=== PATIENT | female | born 1940 | race Caucasian/White ===

== ENCOUNTER 2018-03-01 10:46 | Observation (INO) ==
--- NOTE | 2018-03-01 11:00 | Emergency Department Note ---
ED Disposition Clinical Impression: Pneumonia Qualifiers: Pneumonia type: due to unspecified organism Laterality: left Lung location: lower lobe of lung Qualified Code(s): J18.1 - Lobar pneumonia, unspecified organism Disposition: Admitted As Inpatient Condition on Discharge: [facility] - Critical Care Critical Care Time: No Attestation: On , the high probability of a clinically significant, sudden or life threatening deterioration of the following system(s) required my full and direct attention, intervention and personal management. The time I documented below is in addition to time spent performing reported procedures but includes the following listed in this critical care notation. Medical Decision Making - Alex Inquiry Pt receiving controlled substance: No Vital Signs: 03/01/18 10:47 03/01/18 11:09 03/01/18 11:39 Temperature 97.8 F 98.0 F Temperature Source Oral Oral Pulse Rate 120 H Pulse Rate [Right Brachial] 128 H 129 H Respiratory Rate 32 H 24 Blood Pressure Blood Pressure [Right Arm] 126/94 134/49 Blood Pressure Mean [Right Arm] 104 77 Blood Pressure Source [Right Arm] Automatic Cuff Automatic Cuff Blood Pressure Position [Right Arm] Supine Sitting 02 Sat by Pulse Oximetry 93 L 98 Oxygen Delivery Method Room Air Room Air 03/01/18 12:13 03/01/18 13:00 03/01/18 14:20 Temperature 98.2 F Temperature Source Oral Pulse Rate Pulse Rate [Right Brachial] 128 H 116 H 118 H Respiratory Rate 24 28 H 24 Blood Pressure Blood Pressure [Right Arm] 146/75 139/66 150/99 Blood Pressure Mean [Right Arm] 98 90 116 Blood Pressure Source [Right Arm] Automatic Cuff Automatic Cuff Automatic Cuff Blood Pressure Position [Right Arm] Sitting Sitting Sitting 02 Sat by Pulse Oximetry 99 97 97 Oxygen Delivery Method Room Air Room Air Room Air 03/01/18 14:46 Temperature 98.4 F Temperature Source Pulse Rate 133 H Pulse Rate [Right Brachial] Respiratory Rate 26 H Blood Pressure 144/81 Blood Pressure [Right Arm] Blood Pressure Mean [Right Arm] Blood Pressure Source [Right Arm] Blood Pressure Position [Right Arm] 02 Sat by Pulse Oximetry Oxygen Delivery Method Room Air - Lab Data Lab Results 03/01/18 11:20: WBC 12.1 H, RBC 4.14 L, Hgb 11.8 L, Hct 38.6, MCV 93.3, MCH 28.4 , MCHC 30.5 L, RDW 14.8, Plt Count 283, MPV 8.0, Neut % (Auto) 80.9 H, Lymph % ( Auto) 11.5, [place] % (Auto) 5.1, Eos % (Auto) 2.3, Baso % (Auto) 0.2, Neut # (Auto ) 9.8 H, Lymph # (Auto) 1.4, [place] # (Auto) 0.6, Eos # (Auto) 0.3, Baso # (Auto) 0.0 03/01/18 11:20: Sodium 143, Potassium 4.0, Chloride 105, Carbon Dioxide 30, Anion Gap 12.0, BUN 15, Creatinine 0.96, Estimated Creat Clear 85, Estimated GFR 56 L, Est GFR ( Amer) 68, Glucose 109 H, Calcium 8.8, Total Bilirubin 0.5, AST 9 L, ALT 14, Alkaline Phosphatase 103, Troponin I < 0.02, Total Protein 7.0, Albumin 2.8 L, Globulin 4.2 H, Albumin/Globulin Ratio 0.7 L 03/01/18 11:20: Lactic Acid 1.2 03/01/18 11:30: Chlamy pneumoniae PCR Not detected, Adenovirus (PCR) Not detected, B.parapertussis DNA PCR Not detected, Coronavirus OC43 (PCR) Not detected, Coronavirus HKU1 (PCR) Not detected, Coronavirus 229E (PCR) Not detected, Coronavirus NL63 (PCR) Not detected, Human Metapneumovir PCR Not detected, Influenza A (H1) PCR Not detected, Influ A (H1N1/09) PCR Not detected , Influenza A (H3) PCR Not detected, Influenza Type A (PCR) Not detected, Influenza Type B (PCR) Not detected, M. pneumoniae (PCR) Not detected, Parainfluenza 1 (PCR) Not detected, Parainfluenza 2 (PCR) Not detected, Parainfluenza 3 (PCR) Not detected, Parainfluenza 4 (PCR) Not detected, RSV (PCR ) Not detected, Entero/Rhino (PCR) Not detected Result diagrams: 03/01/18 11:20 03/01/18 11:20 Orders (Tests/Meds): ED MEDICATIONS Generic Name Dose Route Start Last Admin Trade Name Freq PRN Reason Stop Dose Admin Acetaminophen 650 mg 03/01/18 14:32 Acetaminophen 325mg Tab PO 03/31/18 14:31 Q4HP PRN As Needed for Fever or Pain Albuterol/Ipratropium 3 ml 03/01/18 20:00 03/01/18 18:49 Duoneb 3ml Neb IH 03/31/18 19:59 3 ml QIDRT JOHNNIE Administration Carbidopa/Levodopa 1 each 03/01/18 21:00 Carbidopa/Levodopa 25/100mg Tablet PO 03/31/18 20:59 TID JOHNNIE Diltiazem HCl 120 mg 03/02/18 09:00 Cardizem Cd 120mg Capsule PO 04/01/18 08:59 DAILY [facility] Fluoxetine HCl 20 mg 03/01/18 21:00 Prozac 20mg Capsule PO 03/31/18 20:59 BID [facility] Fluticasone Propionate 1 puffs 03/01/18 21:00 Flovent Hfa 110mcg Inhaler IH 03/31/18 20:59 BID [facility] Gabapentin 400 mg 03/01/18 21:00 Neurontin 400mg Capsule PO 03/31/18 20:59 HS [facility] Vancomycin HCl 2,000 mg/ 250 mls @ 125 mls/hr 03/01/18 15:00 03/01/18 17:37 Sodium Chloride IV 03/15/18 14:59 125 mls/hr Q24H JOHNNIE Administration Cefepime HCl 2 gm/ Sodium 100 mls @ 200 mls/hr 03/01/18 21:00 Chloride IV 03/15/18 14:14 Q12 JOHNNIE Protocol Levofloxacin/Dextrose 750 mg in 150 mls @ 100 mls/hr 03/02/18 11:00 Levofloxacin 750mg/150ml Premix IV 03/16/18 10:59 1100 [facility] Protocol Methylprednisolone Sodium Succinate 80 mg 03/01/18 21:00 Solu-Medrol 125mg/2ml Vial IV 03/31/18 20:59 Q8H JOHNNIE Pantoprazole Sodium 40 mg 03/01/18 21:00 Protonix 40mg Tablet PO 03/31/18 20:59 HS [facility] Polyethylene Glycol 17 gm 03/02/18 09:00 Miralax 17gm Packet PO 04/01/18 08:59 DAILY [facility] Discontinued Medications Generic Name Dose Route Start Last Admin Trade Name Freq PRN Reason Stop Dose Admin Albuterol/Ipratropium 3 ml 03/01/18 10:50 05/30/18 11:00 Duoneb 3ml Neb 03/01/18 10:51 3 ml ONCE ONE Administration Levofloxacin/Dextrose 750 mg in 150 mls @ 100 mls/hr 03/01/18 14:15 03/01/18 16:07 Levofloxacin 750mg/150ml Premix IV 03/15/18 14:14 Not Given Q24H JOHNNIE Protocol Cefepime HCl 2 gm/ Sodium 100 mls @ 200 mls/hr 03/01/18 14:15 03/01/18 14:17 Chloride IV 03/15/18 14:14 200 mls/hr Q12H JOHNNIE Administration Protocol Vancomycin HCl 2,000 mg/ 250 mls @ 125 mls/hr 03/01/18 15:00 Sodium Chloride IV 03/15/18 14:59 Q24H JOHNNIE Levofloxacin/Dextrose 750 mg in 150 mls @ 100 mls/hr 03/01/18 14:28 Levofloxacin 750mg/150ml Premix IV 03/15/18 14:14 1100 JOHNNIE Protocol Cefepime HCl 2 gm/ Sodium 100 mls @ 200 mls/hr 03/01/18 14:28 Chloride IV 03/15/18 14:14 Q12 JOHNNIE Protocol Levofloxacin/Dextrose 750 mg in 150 mls @ 100 mls/hr 03/01/18 15:30 03/01/18 15:39 Levofloxacin 750mg/150ml Premix IV 03/15/18 15:29 100 mls/hr 1500 JOHNNIE Administration Protocol Levofloxacin/Dextrose 750 mg in 150 mls @ 100 mls/hr 03/01/18 16:06 Levofloxacin 750mg/150ml Premix IV 03/15/18 15:29 DAILY JOHNNIE Protocol Methylprednisolone Sodium Succinate 125 mg 03/01/18 11:28 03/01/18 11:47 Solu-Medrol 125mg/2ml Vial IV 03/01/18 11:29 125 mg ONCE ONE Administration Miscellaneous 1 each 03/01/18 14:05 03/01/18 14:10 Vancomycin Consult Request NOTAPPLIC 03/01/18 14:06 1 each CONSULT PHARMACY ONE Administration Miscellaneous 1 each 03/01/18 14:32 Vancomycin Consult Request * 03/31/18 14:31 CONSULT PHARMACY [facility] Sodium Chloride 3 ml 03/01/18 11:02 Sodium Chloride 3% 15ml [facility] 03/01/18 11:03 ONCE ONE Sodium Chloride 3 ml 03/01/18 14:32 Sodium Chloride 3% 15ml [facility] 03/01/18 14:33 ONCE ONE ORDERS Category Date Time Status Blood Culture Stat Micro 03/01/18 11:08 Received Sputum Culture & Gram Stain Stat Micro 03/01/18 11:02 Results - Radiology Data #1 Image(s): Chest Image Reviewed: Yes I discussed the image results w/the radiologist Left basilar infiltrate - ECG Data Tracing #1 EKG interpreted by Omar Becker MD: Rhythm: Baseline artifact present. Regular tachycardia, sinus tachycardia vs a. flutter (has h/o a. fib) Rate: 126 [place]: Left Ectopy: none Conduction: normal ST Segment Changes: none T Wave Changes: none Q Waves: none No evidence of acute ischemia or injury - Physician Consults Physician Consulted: Chase Time: 14:07 Reason -: Admission Comment/Response: Agrees to admit the patient to the hospital. We discussed the patient's clinical information, including history, exam, laboratory and radiology results and ED course. Per hospital procedure, I will write temporary bridge inpatient orders on the patient. Specific orders requested by the admitting physician: Cefepime, Levaquin, vancomycin. Continue nebulizer treatments and steroids. Has a history of MAT which generally improves with treatment of her pulmonary disease. No specific treatment for heart rate at this time. - Reevaluation(s) Time: 13:15 Reevaluation #1: Feels mildly improved. Heart rate 110, irregular. General Adult HPI - General Chief complaint: Shortness of Breath/Dyspnea Stated complaint: cough, soa Time Seen by Provider: 03/01/18 10:50 - History of Present Illness HPI narrative: Transported from [facility]. States she is sick for 1 week with a "chest cold". She has a productive cough, coughing up "globs" of green and yellow. She has shortness of air. Denies chest pain or fever. She does have a sore throat. She has COPD. Prior to entering the shelter 1 year ago she had been on oxygen at home 24 hours a day, but is not currently on oxygen in the shelter. She does get breathing treatments. - Related Data Home Medications Medication Instructions Recorded Confirmed Acetaminophen [Acetaminophen Extra 1,000 mg PO Q6HP PRN 03/01/18 03/01/18 Strength] Carbidopa/Levodopa 1 tab PO TID 03/01/18 03/01/18 [Carbidopa/Levodopa 25/100mg Tablet] Fluoxetine HCl [Prozac] 20 mg PO BID 03/01/18 03/01/18 Fluticasone Propionate [Flovent 1 puff IH BID 03/01/18 03/01/18 Hfa 110mcg Inhaler] Gabapentin [Gabapentin 400mg Cap] 400 mg PO HS 03/01/18 03/01/18 Lactulose [Lactulose 10gm/15ml 10 gm PO DAILYP PRN 03/01/18 03/01/18 Oral Soln] Omeprazole [Omeprazole 20mg Tab] 20 mg PO 0700 03/01/18 03/01/18 Peg 400/Hypromellose/Glycerin 1 drop OP DAILY 03/01/18 03/01/18 [Artificial Tears Drops] Polyethylene Glycol 3350 [Miralax 17 gm PO DAILY 03/01/18 03/01/18 17gm Packet] clonazePAM [Klonopin 0.5mg tablet] 0.5 mg PO 0900,1300,2100 03/01/18 03/01/18 dilTIAZem HCl [Diltiazem 120mg 120 mg PO DAILY 03/01/18 03/01/18 12Hr ER Cap] guaiFENesin [Robafen] 200 mg PO Q4HP PRN 03/01/18 03/01/18 Allergies Allergy/AdvReac Type Severity Reaction Status Date / Time ibuprofen [From ADVIL] Allergy Intermediate I-HIVES Verified 03/01/18 11:25 Penicillins [PENICILLINS] Allergy Intermediate I-RASH Verified 03/01/18 11:25 Sulfa (Sulfonamide Allergy Intermediate I-RASH Verified 03/01/18 11:25 Antibiotics) [SULFA (SULFONAMIDE ANTIBIOTICS)] theophylline [THEOPHYLLINE] Allergy Intermediate NA-NAUSEA/V Verified 03/01/18 11:25 OMITING/DERICK RRHEA/EXCIT ABLE adhesive tape Allergy Mild COBAN Verified 03/01/18 11:25 CAUSES BLISTERING/WELTS alprazolam [ALPRAZOLAM] Allergy Unknown NA-HALLUCIN Verified 03/01/18 11:25 ATIONS aspirin [ASPIRIN] Allergy Unknown NA-NAUSEA/V Verified 03/01/18 11:25 OMITING codeine [CODEINE] Allergy Unknown UNKNOWN Verified 03/01/18 11:25 REACTION doxycycline [DOXYCYCLINE] Allergy Unknown UNKNOWN Verified 03/01/18 11:25 REACTION erythromycin base Allergy Unknown CRAMPS & Verified 03/01/18 11:25 [ERYTHROMYCIN BASE] HEADACHE hydrocodone [From LORTAB] Allergy Unknown UNKNOWN Verified 03/01/18 11:25 REACTION Iodinated Contrast Media - Allergy Unknown Verified 03/01/18 11:25 Oral and [IODINATED CONTRAST MEDIA - IV DYE] linezolid [From ZYVOX] Allergy Unknown UNKNOWN Verified 03/01/18 11:25 REACTION meperidine [From DEMEROL] Allergy Unknown UNKNOWN Verified 03/01/18 11:25 REACTION methocarbamol [From ROBAXIN] Allergy Unknown MUSCLE Verified 03/01/18 11:25 STIFFNESS metoclopramide [From REGLAN] Allergy Unknown UNKNOWN Verified 03/01/18 11:25 REACTION morphine [MORPHINE] Allergy Unknown NA-NAUSEA/V Verified 03/01/18 11:25 OMITING oxycodone [OXYCODONE] Allergy Unknown UNKNOWN Verified 03/01/18 11:25 REACTION prochlorperazine Allergy Unknown UNKNOWN Verified 03/01/18 11:25 [From COMPAZINE] REACTION propoxyphene [PROPOXYPHENE] Allergy Unknown Verified 03/01/18 11:25 Tetanus Vaccines and Toxoid Allergy Unknown SWELLING Verified 03/01/18 11:25 [TETANUS VACCINES & TOXOID] [facility] History I have reviewed the patient's past medical history: Yes ROS Obtained: Yes All systems reviewed & no additional complaints - Constitutional Constitutional: Denies fever(s) - ENT Ears, Nose, Mouth, and Throat: Denies nasal discharge, Reports sore throat - Cardiovascular Cardiovascular: Denies chest pain - Respiratory Respiratory: Yes cough, Yes dyspnea, Yes excessive phlegm production Physical Exam - General General appearance: alert, in no apparent distress - Head Head exam: atraumatic, normocephalic, normal inspection - Eye Eye exam: Present: normal appearance, PERRL, EOMI - ENT ENT exam: Present: normal exam, normal oropharynx, mucous membranes moist, TM's normal bilaterally, normal external ear exam - Neck Neck exam: Present: normal inspection, full ROM, trachea midline. Absent: meningismus, lymphadenopathy - Chest Chest inspection: Present: normal inspection, symmetric chest wall rise. Absent : tenderness - Respiratory Respiratory exam: Present: normal lung sounds bilaterally. Absent: respiratory distress - Cardiovascular Cardiovascular exam: Present: tachycardia. Absent: JVD - Abdominal Exam Abdominal exam: Present: soft, normal bowel sounds. Absent: distention, tenderness, guarding - Extremities Exam Extremities exam: Present: normal capillary refill, other (2+ edema of legs and feet) - Back Exam Back exam: Present: normal inspection. Absent: tenderness - Neurological Exam Neurological exam: Present: alert, oriented X3 - Psychiatric Psychiatric exam: Present: normal affect, normal mood - Skin Skin exam: Present: warm, dry, intact, normal color
[2018-03-01 11:25] LABS: Basophils % 0.2 % (0.1-2.0); Eosinophils # 0.3 K/mm3 (0.0-0.4); Eosinophils % 2.3 % (0.1-12.0); Hematocrit 38.6 % (37.0-47.0); Hemoglobin 11.8 g/dL (12.2-16.2); Lymphocytes # 1.4 K/mm3 (0.7-4.5); Lymphocytes % 11.5 K/mm3 (10-50); Mean Corpuscular HGB Conc 30.5 g/dL (31.8-35.4); Mean Corpuscular Hemoglobin 28.4 pg (27.0-31.2); Mean Corpuscular Volume 93.3 fl (81-99); Monocytes # 0.6 K/mm3 (0.1-1.0); Monocytes % 5.1 % (1.7-9.3); Neutrophils # 9.8 K/mm3 (1.8-7.8); Neutrophils % 80.9 % (37.0-80.0); Platelet Count 283 K/mm3 (142-424); Red Blood Count 4.14 M/mm3 (4.20-5.40); Red Cell Distribution Width 14.8 % (11.5-17.5); White Blood Count 12.1 K/mm3 (4.8-10.8)
[2018-03-01 11:39] LABS: Alanine Aminotransferase 14 U/L (12-78); Albumin Level 2.8 gm/dL (3.4-5.0); Albumin/Globulin Ratio 0.7 (1.1-1.8); Alkaline Phosphatase 103 U/L (46-116); Aspartate Amino Transferase 9 U/L (15-37); Bilirubin,Total 0.5 mg/dL (0.2-1.0); Blood Urea Nitrogen 15 mg/dL (7-18); Calcium 8.8 mg/dL (8.5-10.1); Carbon Dioxide 30 mmol/L (21.0-32.0); Chloride 105 mmol/L (98-107); Globulin 4.2 gm/dl (1.3-3.2); Glucose 109 mg/dL (74-106); Sodium 143 mmol/L (136-145)
[2018-03-01 11:40] LABS: Coronavirus 229E Not Detected (NotDetected); Coronavirus NL63 Not Detected (NotDetected); Coronavirus OC43 Not Detected (NotDetected); Coronovirus HKU1,PCR Not Detected (NotDetected)
--- NOTE | 2018-03-01 14:27 | Pharmacy Consult Notes ---
- Pharmacy Consult Date: 03/01/18 Time: 14:25 Referring provider: DR. BROWN Reason for Consult:: VANCOMYCIN DOSING Allergies and ADEs:: Allergies Allergy/AdvReac Type Severity Reaction Status Date / Time ibuprofen [From ADVIL] Allergy Intermediate I-HIVES Verified 03/01/18 11:25 Penicillins [PENICILLINS] Allergy Intermediate I-RASH Verified 03/01/18 11:25 Sulfa (Sulfonamide Allergy Intermediate I-RASH Verified 03/01/18 11:25 Antibiotics) [SULFA (SULFONAMIDE ANTIBIOTICS)] theophylline [THEOPHYLLINE] Allergy Intermediate NA-NAUSEA/V Verified 03/01/18 11:25 OMITING/DERICK RRHEA/EXCIT ABLE adhesive tape Allergy Mild [place] Verified 03/01/18 11:25 CAUSES BLISTERING/WELTS alprazolam [ALPRAZOLAM] Allergy Unknown NA-HALLUCIN Verified 03/01/18 11:25 ATIONS aspirin [ASPIRIN] Allergy Unknown NA-NAUSEA/V Verified 03/01/18 11:25 OMITING codeine [CODEINE] Allergy Unknown UNKNOWN Verified 03/01/18 11:25 REACTION doxycycline [DOXYCYCLINE] Allergy Unknown UNKNOWN Verified 03/01/18 11:25 REACTION erythromycin base Allergy Unknown CRAMPS & Verified 03/01/18 11:25 [ERYTHROMYCIN BASE] HEADACHE hydrocodone [From LORTAB] Allergy Unknown UNKNOWN Verified 03/01/18 11:25 REACTION Iodinated Contrast Media - Allergy Unknown Verified 03/01/18 11:25 Oral and [IODINATED CONTRAST MEDIA - IV DYE] linezolid [From ZYVOX] Allergy Unknown UNKNOWN Verified 03/01/18 11:25 REACTION meperidine [From DEMEROL] Allergy Unknown UNKNOWN Verified 03/01/18 11:25 REACTION methocarbamol [From ROBAXIN] Allergy Unknown MUSCLE Verified 03/01/18 11:25 STIFFNESS metoclopramide [From REGLAN] Allergy Unknown UNKNOWN Verified 03/01/18 11:25 REACTION morphine [MORPHINE] Allergy Unknown NA-NAUSEA/V Verified 03/01/18 11:25 OMITING oxycodone [OXYCODONE] Allergy Unknown UNKNOWN Verified 03/01/18 11:25 REACTION prochlorperazine Allergy Unknown UNKNOWN Verified 03/01/18 11:25 [From COMPAZINE] REACTION propoxyphene [PROPOXYPHENE] Allergy Unknown Verified 03/01/18 11:25 Tetanus Vaccines and Toxoid Allergy Unknown SWELLING Verified 03/01/18 11:25 [TETANUS VACCINES & TOXOID] Home Medications:: Home Medications Medication Instructions Recorded Confirmed Type Carbidopa/Levodopa 25 - 100 mg PO TID 03/01/18 03/01/18 History [Carbidopa/Levodopa 25/100mg Tablet] Fluoxetine HCl [Prozac] 20 mg PO BID 03/01/18 03/01/18 History Fluticasone Propionate [Flovent 1 puff IH BID 03/01/18 03/01/18 History Hfa 110mcg Inhaler] Gabapentin [Gabapentin 400mg Cap] 400 mg PO HS 03/01/18 03/01/18 History Omeprazole [Omeprazole 20mg Tab] 20 mg PO DAILY 03/01/18 03/01/18 History Polyethylene Glycol 3350 [Miralax 17 gm PO DAILY 03/01/18 03/01/18 History 17gm Packet] dilTIAZem HCl [Diltiazem 120mg 120 mg PO DAILY 03/01/18 03/01/18 History 12Hr ER Cap] Height: 1.68 m Weight: 114.759 kg Laboratory Results:: Laboratory Results - last 24 hr 03/01/18 11:20: WBC 12.1 H, RBC 4.14 L, Hgb 11.8 L, Hct 38.6, MCV 93.3, MCH 28.4 , MCHC 30.5 L, RDW 14.8, Plt Count 283, MPV 8.0, Neut % (Auto) 80.9 H, Lymph % ( Auto) 11.5, [place] % (Auto) 5.1, Eos % (Auto) 2.3, Baso % (Auto) 0.2, Neut # (Auto ) 9.8 H, Lymph # (Auto) 1.4, [place] # (Auto) 0.6, Eos # (Auto) 0.3, Baso # (Auto) 0.0 03/01/18 11:20: Sodium 143, Potassium 4.0, Chloride 105, Carbon Dioxide 30, Anion Gap 12.0, BUN 15, Creatinine 0.96, Estimated Creat Clear 85, Estimated GFR 56 L, Est GFR ( Amer) 68, Glucose 109 H, Calcium 8.8, Total Bilirubin 0.5, AST 9 L, ALT 14, Alkaline Phosphatase 103, Troponin I < 0.02, Total Protein 7.0, Albumin 2.8 L, Globulin 4.2 H, Albumin/Globulin Ratio 0.7 L 03/01/18 11:20: Lactic Acid 1.2 03/01/18 11:30: Chlamy pneumoniae PCR Not detected, Adenovirus (PCR) Not detected, B.parapertussis DNA PCR Not detected, Coronavirus OC43 (PCR) Not detected, Coronavirus HKU1 (PCR) Not detected, Coronavirus 229E (PCR) Not detected, Coronavirus NL63 (PCR) Not detected, Human Metapneumovir PCR Not detected, Influenza A (H1) PCR Not detected, Influ A (H1N1/09) PCR Not detected , Influenza A (H3) PCR Not detected, Influenza Type A (PCR) Not detected, Influenza Type B (PCR) Not detected, M. pneumoniae (PCR) Not detected, Parainfluenza 1 (PCR) Not detected, Parainfluenza 2 (PCR) Not detected, Parainfluenza 3 (PCR) Not detected, Parainfluenza 4 (PCR) Not detected, RSV (PCR ) Not detected, Entero/Rhino (PCR) Not detected Medical History: Denies:: Cancer, Diabetes Mellitus Type 1, Diabetes Mellitus Type 2, MRSA Comments:: BASED ON PATIENT'S FACTORS, RECOMMEND STARTING WITH VANCOMYCIN 2000 MG Q24H AT THIS TIME. PATIENT IS ALSO RECEIVING CEFEPIME AND LEVAQUIN. PHARMACY WILL FOLLOW DAILY AND ADJUST APPROPRIATE. RAFIA VÁZQUEZ, VALERIAD
--- NOTE | 2018-03-01 15:17 | Pharmacy Consult Notes ---
[facility] Pharmacy VTE Monitoring - Patient Demographics Admission date: 03/01/18 Report Date: 03/01/18 Time: 15:17 Allergies/Adverse Reactions: Patient Allergies ibuprofen [From ADVIL] Allergy (Intermediate, Verified 03/01/18 11:25) I-HIVES Penicillins [PENICILLINS] Allergy (Intermediate, Verified 03/01/18 11:25) I-RASH Sulfa (Sulfonamide Antibiotics) [SULFA (SULFONAMIDE ANTIBIOTICS)] Allergy ( Intermediate, Verified 03/01/18 11:25) I-RASH theophylline [THEOPHYLLINE] Allergy (Intermediate, Verified 03/01/18 11:25) NA-NAUSEA/VOMITING/DIARRHEA/EXCITABLE adhesive tape Allergy (Mild, Verified 03/01/18 11:25) COBAN CAUSES BLISTERING/WELTS alprazolam [ALPRAZOLAM] Allergy (Unknown, Verified 03/01/18 11:25) NA-HALLUCINATIONS aspirin [ASPIRIN] Allergy (Unknown, Verified 03/01/18 11:25) NA-NAUSEA/VOMITING codeine [CODEINE] Allergy (Unknown, Verified 03/01/18 11:25) UNKNOWN REACTION doxycycline [DOXYCYCLINE] Allergy (Unknown, Verified 03/01/18 11:25) UNKNOWN REACTION erythromycin base [ERYTHROMYCIN BASE] Allergy (Unknown, Verified 03/01/18 11:25) CRAMPS & HEADACHE hydrocodone [From LORTAB] Allergy (Unknown, Verified 03/01/18 11:25) UNKNOWN REACTION Iodinated Contrast Media - Oral and [IODINATED CONTRAST MEDIA - IV DYE] Allergy (Unknown, Verified 03/01/18 11:25) linezolid [From ZYVOX] Allergy (Unknown, Verified 03/01/18 11:25) UNKNOWN REACTION meperidine [From DEMEROL] Allergy (Unknown, Verified 03/01/18 11:25) UNKNOWN REACTION methocarbamol [From ROBAXIN] Allergy (Unknown, Verified 03/01/18 11:25) MUSCLE STIFFNESS metoclopramide [From REGLAN] Allergy (Unknown, Verified 03/01/18 11:25) UNKNOWN REACTION morphine [MORPHINE] Allergy (Unknown, Verified 03/01/18 11:25) NA-NAUSEA/VOMITING oxycodone [OXYCODONE] Allergy (Unknown, Verified 03/01/18 11:25) UNKNOWN REACTION prochlorperazine [From COMPAZINE] Allergy (Unknown, Verified 03/01/18 11:25) UNKNOWN REACTION propoxyphene [PROPOXYPHENE] Allergy (Unknown, Verified 03/01/18 11:25) Tetanus Vaccines and Toxoid [TETANUS VACCINES & TOXOID] Allergy (Unknown, Verified 03/01/18 11:25) SWELLING Height: 1.68 m Weight: 114.759 kg Patient Problems: Current Active Problems Pneumonia (Acute) - VTE Risk Labs: VTE Related Lab Results Hgb 11.8 g/dL (12.2-16.2) L 03/01/18 11:20 Hct 38.6 % (37.0-47.0) 03/01/18 11:20 Plt Count 283 K/mm3 (142-424) 03/01/18 11:20 BUN 15 mg/dL (7-18) 03/01/18 11:20 Creatinine 0.96 mg/dL (0.55-1.02) 03/01/18 11:20 Estimated Creat Clear 85 mL/min (0-300) 03/01/18 11:20 Clinical Trial Participant: No - Prophylaxis VTE Prophylaxis Ordered?: Yes Types of VTE Prophylaxis: TEDS Knee High
--- NOTE | 2018-03-01 20:47 | History & Physical Report ---
*Admission Date: 03/01/18 *Chief complaint: SOA, cough and tacycardia *History of present illness: 77-year-old white female with long history of COPD/asthma, who has been a halfway resident over the past 14 months because of deconditioning, chronic shortness of air, who is actually improved her pulmonary function at the halfway and has been able to come off most of her oxygen therapy. Over the past couple weeks she has had increasing problems with shortness of air , was noticed to have lots of yellow sputum production today, and was sent to the emergency department where she was found to be hypoxic, slightly febrile and have crackles in her left lung field. Admitted to hospital for antibiotic therapy for COPD exacerbation with healthcare acquired pneumonia. She was also noted to be tachycardic. Pattern most consistent on my EKG reading with multifocal atrial tachycardia which she has had before with these COPD exacerbations. [facility] History Medical History: Reports:: Anxiety, Arrhythmia, Chronic Obstructive Pulmonary Disease (COPD), Depression, Hyperlipidemia, Hypertension, Lung Disease, Supraventricular Tachycardia Denies:: Atrial Fibrillation, Cancer, Diabetes Mellitus Type 1, Diabetes Mellitus Type 2, MRSA, Myocardial Infarction Other Medical History: Reports: Thyroid Disease Comment: History of ataxia, history of morbid obesity with chronic osteoarthritis, chronic deconditioning. History of Parkinson's disease Laterality Cases: Left: Arthroscopy Shoulder, Carpal Tunnel Release, Bilateral: Total Knee Replacement Other Surgeries: Yes: Hernia Repair, Hysterectomy-Total, Thyroidectomy Amputation: No - *Social History Educational Level: Attended High School Smoking Status: Never smoker Alcohol Intake: never Occupational Status: retired Housing: halfway - Psychiatric History Expresses thoughts of harming self/others: None Suicide Plan Description: No Plan *Family Hx:: Diabetes, Heart Attack, Hyperlipidemia, Hypertension Review of Systems - Constitutional Reports chills, Reports fatigue, Reports lack of energy, Reports malaise, Reports weakness, Denies fever(s) - Eyes Reports blurry vision, Reports change in vision - ENT Reports poor balance, Denies abnormal hearing - *Cardiovascular Reports leg pain with activity, Reports shortness of breath, Reports shortness of breath with activity, Reports shortness of breath when lying down, Denies chest pain at rest, Denies chest pain with activity, Denies generalized swelling , Denies irregular heart rhythm - *Respiratory Reports change in phlegm color, Reports chest congestion, Reports cough, Reports shortness of breath, Reports shortness of breath with activity, Reports excessive phlegm production, Denies coughing up blood - *Gastrointestinal Denies abdominal pain, Denies belching, Denies bloating, Denies change in bowel habits, Denies change in stools - *Musculoskeletal Reports abnormal walking, Reports joint pain, Reports joint swelling, Reports limited joint movement, Reports muscle weakness - *Neurologic Reports abnormal walking, Reports frequent falls, Denies abnormal hearing, Denies abnormal movements - Psychiatric Reports lack of enjoyment, Reports anxiety, Reports depression Meds Home Medications Medication Instructions Recorded Confirmed Type Acetaminophen [Acetaminophen Extra 1,000 mg PO Q6HP PRN 03/01/18 03/01/18 History Strength] Carbidopa/Levodopa 1 tab PO TID 03/01/18 03/01/18 History [Carbidopa/Levodopa 25/100mg Tablet] Fluoxetine HCl [Prozac] 20 mg PO BID 03/01/18 03/01/18 History Fluticasone Propionate [Flovent 1 puff IH BID 03/01/18 03/01/18 History Hfa 110mcg Inhaler] Gabapentin [Gabapentin 400mg Cap] 400 mg PO HS 03/01/18 03/01/18 History Lactulose [Lactulose 10gm/15ml 10 gm PO DAILYP PRN 03/01/18 03/01/18 History Oral Soln] Omeprazole [Omeprazole 20mg Tab] 20 mg PO 0700 03/01/18 03/01/18 History Peg 400/Hypromellose/Glycerin 1 drop OP DAILY 03/01/18 03/01/18 History [Artificial Tears Drops] Polyethylene Glycol 3350 [Miralax 17 gm PO DAILY 03/01/18 03/01/18 History 17gm Packet] clonazePAM [Klonopin 0.5mg tablet] 0.5 mg PO 0900,1300,2100 03/01/18 03/01/18 History dilTIAZem HCl [Diltiazem 120mg 120 mg PO DAILY 03/01/18 03/01/18 History 12Hr ER Cap] guaiFENesin [Robafen] 200 mg PO Q4HP PRN 03/01/18 03/01/18 History Allergies Allergy/AdvReac Type Severity Reaction Status Date / Time ibuprofen [From ADVIL] Allergy Intermediate I-HIVES Verified 03/01/18 11:25 Penicillins [PENICILLINS] Allergy Intermediate I-RASH Verified 03/01/18 11:25 Sulfa (Sulfonamide Allergy Intermediate I-RASH Verified 03/01/18 11:25 Antibiotics) [SULFA (SULFONAMIDE ANTIBIOTICS)] theophylline [THEOPHYLLINE] Allergy Intermediate NA-NAUSEA/V Verified 03/01/18 11:25 OMITING/DERICK RRHEA/EXCIT ABLE adhesive tape Allergy Mild COBAN Verified 03/01/18 11:25 CAUSES BLISTERING/WELTS alprazolam [ALPRAZOLAM] Allergy Unknown NA-HALLUCIN Verified 03/01/18 11:25 ATIONS aspirin [ASPIRIN] Allergy Unknown NA-NAUSEA/V Verified 03/01/18 11:25 OMITING codeine [CODEINE] Allergy Unknown UNKNOWN Verified 03/01/18 11:25 REACTION doxycycline [DOXYCYCLINE] Allergy Unknown UNKNOWN Verified 03/01/18 11:25 REACTION erythromycin base Allergy Unknown CRAMPS & Verified 03/01/18 11:25 [ERYTHROMYCIN BASE] HEADACHE hydrocodone [From LORTAB] Allergy Unknown UNKNOWN Verified 03/01/18 11:25 REACTION Iodinated Contrast Media - Allergy Unknown Verified 03/01/18 11:25 Oral and [IODINATED CONTRAST MEDIA - IV DYE] linezolid [From ZYVOX] Allergy Unknown UNKNOWN Verified 03/01/18 11:25 REACTION meperidine [From DEMEROL] Allergy Unknown UNKNOWN Verified 03/01/18 11:25 REACTION methocarbamol [From ROBAXIN] Allergy Unknown MUSCLE Verified 03/01/18 11:25 STIFFNESS metoclopramide [From REGLAN] Allergy Unknown UNKNOWN Verified 03/01/18 11:25 REACTION morphine [MORPHINE] Allergy Unknown NA-NAUSEA/V Verified 03/01/18 11:25 OMITING oxycodone [OXYCODONE] Allergy Unknown UNKNOWN Verified 03/01/18 11:25 REACTION prochlorperazine Allergy Unknown UNKNOWN Verified 03/01/18 11:25 [From COMPAZINE] REACTION propoxyphene [PROPOXYPHENE] Allergy Unknown Verified 03/01/18 11:25 Tetanus Vaccines and Toxoid Allergy Unknown SWELLING Verified 03/01/18 11:25 [TETANUS VACCINES & TOXOID] Exam Vital signs and Labs for Last 24 Hours: Temp Pulse Resp BP Pulse Ox 98.3 F 82 20 159/76 95 03/01/18 16:00 03/01/18 18:50 03/01/18 16:00 03/01/18 16:00 03/01/18 18:50 Laboratory Results - last 24 hr 03/01/18 11:20: WBC 12.1 H, RBC 4.14 L, Hgb 11.8 L, Hct 38.6, MCV 93.3, MCH 28.4 , MCHC 30.5 L, RDW 14.8, Plt Count 283, MPV 8.0, Neut % (Auto) 80.9 H, Lymph % ( Auto) 11.5, [place] % (Auto) 5.1, Eos % (Auto) 2.3, Baso % (Auto) 0.2, Neut # (Auto ) 9.8 H, Lymph # (Auto) 1.4, [place] # (Auto) 0.6, Eos # (Auto) 0.3, Baso # (Auto) 0.0 03/01/18 11:20: Sodium 143, Potassium 4.0, Chloride 105, Carbon Dioxide 30, Anion Gap 12.0, BUN 15, Creatinine 0.96, Estimated Creat Clear 85, Estimated GFR 56 L, Est GFR ( Amer) 68, Glucose 109 H, Calcium 8.8, Total Bilirubin 0.5, AST 9 L, ALT 14, Alkaline Phosphatase 103, Troponin I < 0.02, Total Protein 7.0, Albumin 2.8 L, Globulin 4.2 H, Albumin/Globulin Ratio 0.7 L 03/01/18 11:20: Lactic Acid 1.2 03/01/18 11:30: Chlamy pneumoniae PCR Not detected, Adenovirus (PCR) Not detected, B.parapertussis DNA PCR Not detected, Coronavirus OC43 (PCR) Not detected, Coronavirus HKU1 (PCR) Not detected, Coronavirus 229E (PCR) Not detected, Coronavirus NL63 (PCR) Not detected, Human Metapneumovir PCR Not detected, Influenza A (H1) PCR Not detected, Influ A (H1N1/09) PCR Not detected , Influenza A (H3) PCR Not detected, Influenza Type A (PCR) Not detected, Influenza Type B (PCR) Not detected, M. pneumoniae (PCR) Not detected, Parainfluenza 1 (PCR) Not detected, Parainfluenza 2 (PCR) Not detected, Parainfluenza 3 (PCR) Not detected, Parainfluenza 4 (PCR) Not detected, RSV (PCR ) Not detected, Entero/Rhino (PCR) Not detected I & O for Last 24 hours: Intake & Output 02/27/18 02/28/18 03/01/18 03/02/18 11:59 11:59 11:59 11:59 Weight 253 lb 256 lb Microbiology Reports for the Last 24 Hours: Microbiology 03/01/18 11:02 Sputum - Expectorated Sputum Gram Stain - Final Narrative: Patient is awake, alert, oriented 3. Spent most of her conversation with me asking about a possible return to her home. States that she feels better after treatment in the emergency department. Lung pitts have rhonchi which is her baseline, does have some crackles in the left posterior middle and upper lung pitts. She has crepitant knees bilaterally. Her edema is at her baseline. Her abdomen is soft. Her heart rate is tachycardic but regular. Oxygenation on nasal cannula is adequate with good perfusion and good capillary refill. H&P: Result - Labs Labs: Short CBC 03/01/18 Range/Units 11:20 WBC 12.1 H (4.8-10.8) K/mm3 Hgb 11.8 L (12.2-16.2) g/dL Hct 38.6 (37.0-47.0) % Plt Count 283 (142-424) K/mm3 BMP 03/01/18 11:20 Sodium 143 Potassium 4.0 Chloride 105 Carbon Dioxide 30 BUN 15 Creatinine 0.96 Glucose 109 H Calcium 8.8 Cardiac Enzymes 03/01/18 Range/Units 11:20 Troponin I < 0.02 (0.00-0.06) ng/ml Liver Function 03/01/18 Range/Units 11:20 Total Bilirubin 0.5 (0.2-1.0) mg/dL AST 9 L (15-37) U/L ALT 14 (12-78) U/L Alkaline Phosphatase 103 (46-116) U/L Albumin 2.8 L (3.4-5.0) gm/dL Assessment and Plan (1) COPD with acute exacerbation Current visit: Yes Status: Acute Category: Medical Code(s): J44.1 - Chronic obstructive pulmonary disease with (acute) exacerbation Agree with short-term steroids, nebulizer treatment. (2) Multifocal atrial tachycardia Current visit: Yes Status: Acute Category: Medical Code(s): I47.1 - Supraventricular tachycardia Continue treatment of lung disease. No evidence of atrial fibrillation. (3) Morbid obesity Current visit: Yes Status: Acute Category: Medical Code(s): E66.01 - Morbid (severe) obesity due to excess calories Complicates all aspects of her care and makes examination difficult. Makes her at higher risk of falls. (4) Depression with anxiety Current visit: Yes Status: Acute Category: Medical Code(s): F41.8 - Other specified anxiety disorders Significant psychosomatic overlay. Her daughter talk to me after the interview with patient and told me that there is no way the family can take care of her at home. I will address this with the patient later. (5) Declining functional status Current visit: Yes Status: Acute Category: Medical Code(s): R53.81 - Other malaise Please see notes above. (6) Parkinsonism Current visit: Yes Status: Acute Category: Medical Code(s): G20 - Parkinson's disease Complicates all aspects of her rehabilitation. (7) Pneumonia Current visit: Yes Status: Acute Qualifiers: Pneumonia type: due to unspecified organism Laterality: left Lung location: lower lobe of lung Qualified Code(s): J18.1 - Lobar pneumonia, unspecified organism Category: Medical Code(s): J18.9 - Pneumonia, unspecified organism Agree with healthcare acquired coverage, watch sensitivities carefully
--- NOTE | 2018-03-02 08:58 | Progress Note ---
Internal Medicine - PN: Subj *Date: 03/02/18 *Time: 07:35 Interval history: Patient states "I feel terrible." She is very tearful regarding her ECF placement and wants to go home. Alert and oriented x3. Rate and rhythm regular. 1+ BLE edema. Lung sounds with rhonchi/wheezes anteriorly. Abdomen soft and nontender. Exam Vital signs and Labs for Last 24 Hours: Temp Pulse Resp BP Pulse Ox 97.7 F 131 H 20 164/102 95 03/02/18 08:00 03/02/18 08:00 03/02/18 08:00 03/02/18 08:00 03/02/18 08:00 Laboratory Results - last 24 hr 03/01/18 11:20: WBC 12.1 H, RBC 4.14 L, Hgb 11.8 L, Hct 38.6, MCV 93.3, MCH 28.4 , MCHC 30.5 L, RDW 14.8, Plt Count 283, MPV 8.0, Neut % (Auto) 80.9 H, Lymph % ( Auto) 11.5, [place] % (Auto) 5.1, Eos % (Auto) 2.3, Baso % (Auto) 0.2, Neut # (Auto ) 9.8 H, Lymph # (Auto) 1.4, [place] # (Auto) 0.6, Eos # (Auto) 0.3, Baso # (Auto) 0.0 03/01/18 11:20: Sodium 143, Potassium 4.0, Chloride 105, Carbon Dioxide 30, Anion Gap 12.0, BUN 15, Creatinine 0.96, Estimated Creat Clear 85, Estimated GFR 56 L, Est GFR ( Amer) 68, Glucose 109 H, Calcium 8.8, Total Bilirubin 0.5, AST 9 L, ALT 14, Alkaline Phosphatase 103, Troponin I < 0.02, Total Protein 7.0, Albumin 2.8 L, Globulin 4.2 H, Albumin/Globulin Ratio 0.7 L 03/01/18 11:20: Lactic Acid 1.2 03/01/18 11:30: Chlamy pneumoniae PCR Not detected, Adenovirus (PCR) Not detected, B.parapertussis DNA PCR Not detected, Coronavirus OC43 (PCR) Not detected, Coronavirus HKU1 (PCR) Not detected, Coronavirus 229E (PCR) Not detected, Coronavirus NL63 (PCR) Not detected, Human Metapneumovir PCR Not detected, Influenza A (H1) PCR Not detected, Influ A (H1N1/09) PCR Not detected , Influenza A (H3) PCR Not detected, Influenza Type A (PCR) Not detected, Influenza Type B (PCR) Not detected, M. pneumoniae (PCR) Not detected, Parainfluenza 1 (PCR) Not detected, Parainfluenza 2 (PCR) Not detected, Parainfluenza 3 (PCR) Not detected, Parainfluenza 4 (PCR) Not detected, RSV (PCR ) Not detected, Entero/Rhino (PCR) Not detected I & O for Last 24 hours: Intake & Output 02/27/18 02/28/18 03/01/18 03/02/18 11:59 11:59 11:59 11:59 Intake Total 240 / 240 Balance 240 / 240 Weight 253 lb 256 lb Microbiology Reports for the Last 24 Hours: Microbiology 03/01/18 11:02 Sputum - Expectorated Sputum Gram Stain - Final 03/01/18 11:02 Sputum - Expectorated Sputum Sputum Culture - Preliminary Assessment and Plan (1) COPD with acute exacerbation Current visit: Yes Status: Acute Category: Medical Code(s): J44.1 - Chronic obstructive pulmonary disease with (acute) exacerbation (2) Multifocal atrial tachycardia Current visit: Yes Status: Acute Category: Medical Code(s): I47.1 - Supraventricular tachycardia (3) Morbid obesity Current visit: Yes Status: Acute Category: Medical Code(s): E66.01 - Morbid (severe) obesity due to excess calories (4) Depression with anxiety Current visit: Yes Status: Acute Category: Medical Code(s): F41.8 - Other specified anxiety disorders (5) Declining functional status Current visit: Yes Status: Acute Category: Medical Code(s): R53.81 - Other malaise (6) Parkinsonism Current visit: Yes Status: Acute Category: Medical Code(s): G20 - Parkinson's disease (7) Pneumonia Current visit: Yes Status: Acute Qualifiers: Pneumonia type: due to unspecified organism Laterality: left Lung location: lower lobe of lung Qualified Code(s): J18.1 - Lobar pneumonia, unspecified organism Category: Medical Code(s): J18.9 - Pneumonia, unspecified organism - Assessment and plan all Dx Assessment and Plan for all problems:: Continue broad spectrum IV antibiotics pending sputum culture. Change duonebs to xopenex for tachycardia. Dr. Stone explained that patient must be able to ambulate and perform ADL's with minimal assistance which she is unable to do. Will need LTC placement after discharge next week.
--- NOTE | 2018-03-03 08:38 | Progress Note ---
Internal Medicine - PN: Subj *Date: 03/03/18 *Time: 08:37 Interval history: Overall patient feels some better. Has been switched to Xopenex nebulizer treatments and this has improved her heart rate as has Cardizem. Exam Vital signs and Labs for Last 24 Hours: Temp Pulse Resp BP Pulse Ox 98.5 F 98 H 22 139/73 94 L 03/03/18 07:36 03/03/18 08:00 03/03/18 07:36 03/03/18 07:36 03/03/18 07:36 I & O for Last 24 hours: Intake & Output 02/28/18 03/01/18 03/02/18 03/03/18 11:59 11:59 11:59 11:59 Intake Total 240 / 240 720 / 720 Output Total 900 / 900 Balance 240 / 240 -180 / -180 Weight 253 lb 256 lb Microbiology Reports for the Last 24 Hours: Microbiology 03/01/18 11:02 Sputum - Expectorated Sputum Gram Stain - Final 03/01/18 11:02 Sputum - Expectorated Sputum Sputum Culture - Preliminary Narrative: Slightly better air entry bilaterally. Still with rhonchi, abdomen soft. Heart rate in the mid 90s. Assessment and Plan (1) COPD with acute exacerbation Current visit: Yes Status: Acute Category: Medical Code(s): J44.1 - Chronic obstructive pulmonary disease with (acute) exacerbation (2) Multifocal atrial tachycardia Current visit: Yes Status: Acute Category: Medical Code(s): I47.1 - Supraventricular tachycardia (3) Morbid obesity Current visit: Yes Status: Acute Category: Medical Code(s): E66.01 - Morbid (severe) obesity due to excess calories (4) Depression with anxiety Current visit: Yes Status: Acute Category: Medical Code(s): F41.8 - Other specified anxiety disorders (5) Declining functional status Current visit: Yes Status: Acute Category: Medical Code(s): R53.81 - Other malaise (6) Parkinsonism Current visit: Yes Status: Acute Category: Medical Code(s): G20 - Parkinson's disease (7) Pneumonia Current visit: Yes Status: Acute Qualifiers: Pneumonia type: due to unspecified organism Laterality: left Lung location: lower lobe of lung Qualified Code(s): J18.1 - Lobar pneumonia, unspecified organism Category: Medical Code(s): J18.9 - Pneumonia, unspecified organism - Assessment and plan all Dx Assessment and Plan for all problems:: Overall improving. Await sputum cultures. Continue Xopenex neb treatments. Continue supportive care.
--- NOTE | 2018-03-04 06:21 | Progress Note ---
Internal Medicine - PN: Subj *Date: 03/04/18 *Time: 06:20 Interval history: Did well overnight with no oxygen. Sleeping comfortably. Exam Vital signs and Labs for Last 24 Hours: Temp Pulse Resp BP Pulse Ox 98.1 F 72 24 138/91 98 03/04/18 04:00 03/04/18 04:00 03/04/18 04:00 03/04/18 04:00 03/04/18 04:00 I & O for Last 24 hours: Intake & Output 03/01/18 03/02/18 03/03/18 03/04/18 11:59 11:59 11:59 11:59 Intake Total 240 / 240 870 / 870 720 / 720 Output Total 900 / 900 Balance 240 / 240 -30 720 / 720 Weight 253 lb 256 lb 256 lb 0.012 oz Microbiology Reports for the Last 24 Hours: Microbiology 03/01/18 11:02 Sputum - Expectorated Sputum Gram Stain - Final 03/01/18 11:02 Sputum - Expectorated Sputum Sputum Culture - Preliminary Normal Respiratory Luz 03/01/18 11:08 Blood Blood Culture - Preliminary NO GROWTH AFTER 48 HOURS 03/01/18 11:08 Blood Blood Culture - Preliminary NO GROWTH AFTER 48 HOURS Narrative: Rhonchi and wheezing as previously noted but good air movement. Crackles have improved slightly. Heart rate improved. Abdomen soft nontender. Assessment and Plan (1) COPD with acute exacerbation Current visit: Yes Status: Acute Category: Medical Code(s): J44.1 - Chronic obstructive pulmonary disease with (acute) exacerbation (2) Multifocal atrial tachycardia Current visit: Yes Status: Acute Category: Medical Code(s): I47.1 - Supraventricular tachycardia (3) Morbid obesity Current visit: Yes Status: Acute Category: Medical Code(s): E66.01 - Morbid (severe) obesity due to excess calories (4) Depression with anxiety Current visit: Yes Status: Acute Category: Medical Code(s): F41.8 - Other specified anxiety disorders (5) Declining functional status Current visit: Yes Status: Acute Category: Medical Code(s): R53.81 - Other malaise (6) Parkinsonism Current visit: Yes Status: Acute Category: Medical Code(s): G20 - Parkinson's disease (7) Pneumonia Current visit: Yes Status: Acute Qualifiers: Pneumonia type: due to unspecified organism Laterality: left Lung location: lower lobe of lung Qualified Code(s): J18.1 - Lobar pneumonia, unspecified organism Category: Medical Code(s): J18.9 - Pneumonia, unspecified organism - Assessment and plan all Dx Assessment and Plan for all problems:: Overall situation has improved. Check labs tomorrow morning. Possibly transfer back to skilled care tomorrow if pulmonary status continues to improve
[2018-03-04 07:34] LABS: ABG Base Excess 2.3 mmol/L (-2.4-2.3); ABG HCO3 26.4 mmhg (22.0-26.0); ABG Oxygen Saturation 96 % (90-100); ABG PCO2 39.5 mmhg (35.0-45.0); ABG PH 7.44 mmol/L (7.35-7.45); ABG TCO2 27.6 mmhg (23-27)
[2018-03-04 07:36] LABS: Allen's Test Patient Unable; Oxygen ROOM AIR %
[2018-03-04 07:40] LABS: Basophils % 0.1 % (0.1-2.0); Eosinophils # 0.1 K/mm3 (0.0-0.4); Eosinophils % 0.5 % (0.1-12.0); Hematocrit 43.8 % (37.0-47.0); Hemoglobin 13.1 g/dL (12.2-16.2); Lymphocytes # 1.1 K/mm3 (0.7-4.5); Lymphocytes % 9.3 K/mm3 (10-50); Mean Corpuscular HGB Conc 29.9 g/dL (31.8-35.4); Mean Corpuscular Volume 93.5 fl (81-99); Mean Platelet Volume 7.8 fl (7.4-10.4); Monocytes # 0.5 K/mm3 (0.1-1.0); Monocytes % 4.3 % (1.7-9.3); Neutrophils # 10.2 K/mm3 (1.8-7.8); Neutrophils % 85.8 % (37.0-80.0); Platelet Count 310 K/mm3 (142-424); Red Blood Count 4.69 M/mm3 (4.20-5.40); Red Cell Distribution Width 14.7 % (11.5-17.5); White Blood Count 11.9 K/mm3 (4.8-10.8)
[2018-03-04 07:47] LABS: Anion Gap 15.2 mEq/L (5-15); Potassium 4.2 mmoL/L (3.5-5.1)
[2018-03-04 07:58] LABS: Lymphocytes % 7 % (10-50); Monocytes % 5 % (2-9); Neutrophils % 82 % (42-76); RBC Morphology Normal; Total Cells Counted 100
--- NOTE | 2018-03-04 13:31 | Progress Note ---
Internal Medicine - PN: Subj *Date: 03/04/18 *Time: 13:31 Exam Vital signs and Labs for Last 24 Hours: Temp Pulse Resp BP Pulse Ox 98.4 F 80 20 114/64 96 03/04/18 12:00 03/04/18 12:00 03/04/18 12:00 03/04/18 12:00 03/04/18 12:00 Laboratory Results - last 24 hr 03/04/18 07:20: Specimen Source Right radial, O2 % Room air, ABG pH 7.44, ABG pCO2 39.5, ABG pO2 79.0 L, ABG HCO3 26.4 H, ABG Total CO2 27.6 H, ABG O2 Saturation 96, ABG Base Excess 2.3, José Test Patient unable 03/04/18 07:30: WBC 11.9 H, RBC 4.69, Hgb 13.1, Hct 43.8, MCV 93.5, MCH 28.0, MCHC 29.9 L, RDW 14.7, Plt Count 310, MPV 7.8, Neut % (Auto) 85.8 H, Lymph % ( Auto) 9.3 L, [place] % (Auto) 4.3, Eos % (Auto) 0.5, Baso % (Auto) 0.1, Neut # ( Auto) 10.2 H, Lymph # (Auto) 1.1, [place] # (Auto) 0.5, Eos # (Auto) 0.1, Baso # ( Auto) 0.0, Total Counted 100, Neutrophils % (Manual) 82 H, Lymphocytes % (Manual ) 7 L, Atypical Lymphs % 6.0, Monocytes % (Manual) 5, Platelet Estimate Normal, RBC Morphology Normal 03/04/18 07:30: Sodium 144, Potassium 4.2, Chloride 106, Carbon Dioxide 27, Anion Gap 15.2 H, BUN 36 H D, Creatinine 1.14 H, Estimated Creat Clear 39, Estimated GFR 46 L, Est GFR ( Amer) 56 L, Glucose 106 I & O for Last 24 hours: Intake & Output 03/01/18 03/02/18 03/03/18 03/04/18 23:59 23:59 23:59 23:59 Intake Total 1110 / 1110 720 / 720 180 / 180 Output Total 900 / 900 Balance 210 / 210 720 / 720 180 / 180 Weight 116.12 kg 116.12 kg Microbiology Reports for the Last 24 Hours: Microbiology 03/01/18 11:02 Sputum - Expectorated Sputum Gram Stain - Final 03/01/18 11:02 Sputum - Expectorated Sputum Sputum Culture - Preliminary Normal Respiratory Luz 03/01/18 11:08 Blood Blood Culture - Preliminary NO GROWTH AFTER 48 HOURS 03/01/18 11:08 Blood Blood Culture - Preliminary NO GROWTH AFTER 48 HOURS Assessment and Plan (1) COPD with acute exacerbation Current visit: Yes Status: Acute Category: Medical Code(s): J44.1 - Chronic obstructive pulmonary disease with (acute) exacerbation (2) Multifocal atrial tachycardia Current visit: Yes Status: Acute Category: Medical Code(s): I47.1 - Supraventricular tachycardia (3) Morbid obesity Current visit: Yes Status: Acute Category: Medical Code(s): E66.01 - Morbid (severe) obesity due to excess calories (4) Depression with anxiety Current visit: Yes Status: Acute Category: Medical Code(s): F41.8 - Other specified anxiety disorders (5) Declining functional status Current visit: Yes Status: Acute Category: Medical Code(s): R53.81 - Other malaise (6) Parkinsonism Current visit: Yes Status: Acute Category: Medical Code(s): G20 - Parkinson's disease (7) Pneumonia Current visit: Yes Status: Acute Qualifiers: Pneumonia type: due to unspecified organism Laterality: left Lung location: lower lobe of lung Qualified Code(s): J18.1 - Lobar pneumonia, unspecified organism Category: Medical Code(s): J18.9 - Pneumonia, unspecified organism The patient's infection will respond to the chosen ABx?: Yes Is the patient receiving the right drug, dose, and route?: Yes Could a more targeted ABx be ordered?: No (MD NOTE INDICATES PATIENT CLINICALLY GETTING BETTER)
[2018-03-05 00:16] LABS: Microscopic, Urine URINE MICROSCOPIC (MICROSCOPIC)
[2018-03-05 00:31] LABS: Appearance,Urine CLEAR (Clear); Bilirubin,Urine Negative (Negative); Blood, Urine TRACE-L (Negative); Color,Urine YELLOW (Yellow); Glucose,Urine (UA) Negative (Negative); Ketones,Urine TRACE (Negative); Leukocyte Esterase,Urine Negative (Negative); PH,Urine 5.5 (5.0-8.5); Protein,Urine TRACE (Negative); Specific Gravity, Urine >= 1.030 (1.005-1.030); Urobilinogen,Urine 0.2 EU/dl (0.2)
[2018-03-05 00:33] LABS: Calcium Oxalate Crystals,Urine 4+ /lpf
[2018-03-05 06:36] LABS: Albumin Level 2.3 gm/dL (3.4-5.0); Albumin/Globulin Ratio 0.6 (1.1-1.8); Anion Gap 9.8 mEq/L (5-15); Bilirubin,Total 0.4 mg/dL (0.2-1.0); Calcium 8.2 mg/dL (8.5-10.1); Globulin 3.9 gm/dl (1.3-3.2); Potassium 3.8 mmoL/L (3.5-5.1); Total Protein,Serum 6.2 gm/dL (6.4-8.2)
--- NOTE | 2018-03-05 07:32 | Progress Note ---
Internal Medicine - PN: Subj *Date: 03/05/18 *Time: 07:30 Interval history: Patient did well overnight, continues to do well without oxygen. Her pulmonary status is improving. Pulse rate was erratic and labile through the day yesterday, with spells of MAT/junctional tachycardia and possibly atrial fibrillation. This morning she is in the low 80s. She is up in a chair. Appears more alert. Exam Vital signs and Labs for Last 24 Hours: Temp Pulse Resp BP Pulse Ox 97.9 F 75 18 143/84 96 03/05/18 07:23 03/05/18 07:23 03/05/18 07:23 03/05/18 07:23 03/05/18 07:23 Laboratory Results - last 24 hr 03/04/18 07:20: Specimen Source Right radial, O2 % Room air, ABG pH 7.44, ABG pCO2 39.5, ABG pO2 79.0 L, ABG HCO3 26.4 H, ABG Total CO2 27.6 H, ABG O2 Saturation 96, ABG Base Excess 2.3, José Test Patient unable 03/04/18 07:30: WBC 11.9 H, RBC 4.69, Hgb 13.1, Hct 43.8, MCV 93.5, MCH 28.0, MCHC 29.9 L, RDW 14.7, Plt Count 310, MPV 7.8, Neut % (Auto) 85.8 H, Lymph % ( Auto) 9.3 L, [place] % (Auto) 4.3, Eos % (Auto) 0.5, Baso % (Auto) 0.1, Neut # ( Auto) 10.2 H, Lymph # (Auto) 1.1, [place] # (Auto) 0.5, Eos # (Auto) 0.1, Baso # ( Auto) 0.0, Total Counted 100, Neutrophils % (Manual) 82 H, Lymphocytes % (Manual ) 7 L, Atypical Lymphs % 6.0, Monocytes % (Manual) 5, Platelet Estimate Normal, RBC Morphology Normal 03/04/18 07:30: Sodium 144, Potassium 4.2, Chloride 106, Carbon Dioxide 27, Anion Gap 15.2 H, BUN 36 H D, Creatinine 1.14 H, Estimated Creat Clear 39, Estimated GFR 46 L, Est GFR ( Amer) 56 L, Glucose 106 03/04/18 14:34: Vancomycin Trough 17.4 03/05/18 00:04: Urine Color Yellow, Urine Appearance Clear, Urine pH 5.5, Ur Specific [place] >= 1.030, Urine Protein Trace, Urine Glucose (UA) Negative, Urine Ketones Trace, Urine Blood Trace-l, Urine Nitrate Negative, Urine Bilirubin Negative, Urine Urobilinogen 0.2, Ur Leukocyte Esterase Negative, Urine RBC 3-5, Ur Squamous Epith Cells 5-10, Calcium Oxalate Crystal 4+ 03/05/18 05:35: Sodium 145, Potassium 3.8, Chloride 109 H, Carbon Dioxide 30, Anion Gap 9.8, BUN 30 H, Creatinine 0.97, Estimated Creat Clear 44, Estimated GFR 56 L, Est GFR ( Amer) 67, Glucose 84 D, Calcium 8.2 L, Total Bilirubin 0.4, AST 9 L, ALT 8 L, Alkaline Phosphatase 79, Total Protein 6.2 L, Albumin 2.3 L, Globulin 3.9 H, Albumin/Globulin Ratio 0.6 L I & O for Last 24 hours: Intake & Output 03/02/18 03/03/18 03/04/18 03/05/18 11:59 11:59 11:59 11:59 Intake Total 240 / 240 870 / 870 720 / 720 420 / 420 Output Total 900 / 900 2 / 2 Balance 240 / 240 -30 / -30 720 / 720 418 / 418 Weight 256 lb 256 lb 0.012 oz Narrative: Significant rhonchi in her chest as previously noted. But improved over her hospital exams a couple of days ago. Heart rate regular with lots of ectopic beats. Abdomen soft, no change in extremity exam. Assessment and Plan (1) COPD with acute exacerbation Current visit: Yes Status: Acute Category: Medical Code(s): J44.1 - Chronic obstructive pulmonary disease with (acute) exacerbation (2) Multifocal atrial tachycardia Current visit: Yes Status: Acute Category: Medical Code(s): I47.1 - Supraventricular tachycardia (3) Morbid obesity Current visit: Yes Status: Acute Category: Medical Code(s): E66.01 - Morbid (severe) obesity due to excess calories (4) Depression with anxiety Current visit: Yes Status: Acute Category: Medical Code(s): F41.8 - Other specified anxiety disorders (5) Declining functional status Current visit: Yes Status: Acute Category: Medical Code(s): R53.81 - Other malaise (6) Parkinsonism Current visit: Yes Status: Acute Category: Medical Code(s): G20 - Parkinson's disease (7) Pneumonia Current visit: Yes Status: Acute Qualifiers: Pneumonia type: due to unspecified organism Laterality: left Lung location: lower lobe of lung Qualified Code(s): J18.1 - Lobar pneumonia, unspecified organism Category: Medical Code(s): J18.9 - Pneumonia, unspecified organism - Assessment and plan all Dx Assessment and Plan for all problems:: Sputum cultures and blood cultures negative. Finish up antibiotic therapy. Functional status improving. Oxygenation is doing well. Irregular heart rate will be treated with Cardizem. I will start Xarelto because of the likelihood of underlying atrial fibrillation from her lung disease, chronic hypertension obesity. Check echocardiogram tomorrow. Probable transfer back to detention.
--- NOTE | 2018-03-05 13:51 | Pharmacy Consult Notes ---
- Pharmacy Consult Date: 03/05/18 Time: 13:48 Referring provider: DR. BROWN Reason for Consult:: VANCOMYCIN LEVEL Allergies and ADEs:: Allergies Allergy/AdvReac Type Severity Reaction Status Date / Time ibuprofen [From ADVIL] Allergy Intermediate I-HIVES Verified 03/01/18 11:25 Penicillins [PENICILLINS] Allergy Intermediate I-RASH Verified 03/01/18 11:25 Sulfa (Sulfonamide Allergy Intermediate I-RASH Verified 03/01/18 11:25 Antibiotics) [SULFA (SULFONAMIDE ANTIBIOTICS)] theophylline [THEOPHYLLINE] Allergy Intermediate NA-NAUSEA/V Verified 03/01/18 11:25 OMITING/DERICK RRHEA/EXCIT ABLE adhesive tape Allergy Mild COBAN Verified 03/01/18 11:25 CAUSES BLISTERING/WELTS alprazolam [ALPRAZOLAM] Allergy Unknown NA-HALLUCIN Verified 03/01/18 11:25 ATIONS aspirin [ASPIRIN] Allergy Unknown NA-NAUSEA/V Verified 03/01/18 11:25 OMITING codeine [CODEINE] Allergy Unknown UNKNOWN Verified 03/01/18 11:25 REACTION doxycycline [DOXYCYCLINE] Allergy Unknown UNKNOWN Verified 03/01/18 11:25 REACTION erythromycin base Allergy Unknown CRAMPS & Verified 03/01/18 11:25 [ERYTHROMYCIN BASE] HEADACHE hydrocodone [From LORTAB] Allergy Unknown UNKNOWN Verified 03/01/18 11:25 REACTION Iodinated Contrast Media - Allergy Unknown Verified 03/01/18 11:25 Oral and [IODINATED CONTRAST MEDIA - IV DYE] linezolid [From ZYVOX] Allergy Unknown UNKNOWN Verified 03/01/18 11:25 REACTION meperidine [From DEMEROL] Allergy Unknown UNKNOWN Verified 03/01/18 11:25 REACTION methocarbamol [From ROBAXIN] Allergy Unknown MUSCLE Verified 03/01/18 11:25 STIFFNESS metoclopramide [From REGLAN] Allergy Unknown UNKNOWN Verified 03/01/18 11:25 REACTION morphine [MORPHINE] Allergy Unknown NA-NAUSEA/V Verified 03/01/18 11:25 OMITING oxycodone [OXYCODONE] Allergy Unknown UNKNOWN Verified 03/01/18 11:25 REACTION prochlorperazine Allergy Unknown UNKNOWN Verified 03/01/18 11:25 [From COMPAZINE] REACTION propoxyphene [PROPOXYPHENE] Allergy Unknown Verified 03/01/18 11:25 Tetanus Vaccines and Toxoid Allergy Unknown SWELLING Verified 03/01/18 11:25 [TETANUS VACCINES & TOXOID] Home Medications:: Home Medications Medication Instructions Recorded Confirmed Type Acetaminophen [Acetaminophen Extra 1,000 mg PO Q6HP PRN 03/01/18 03/01/18 History Strength] Carbidopa/Levodopa 1 tab PO TID 03/01/18 03/01/18 History [Carbidopa/Levodopa 25/100mg Tablet] Fluoxetine HCl [Prozac] 20 mg PO BID 03/01/18 03/01/18 History Fluticasone Propionate [Flovent 1 puff IH BID 03/01/18 03/01/18 History Hfa 110mcg Inhaler] Gabapentin [Gabapentin 400mg Cap] 400 mg PO HS 03/01/18 03/01/18 History Lactulose [Lactulose 10gm/15ml 10 gm PO DAILYP PRN 03/01/18 03/01/18 History Oral Soln] Omeprazole [Omeprazole 20mg Tab] 20 mg PO 0700 03/01/18 03/01/18 History Peg 400/Hypromellose/Glycerin 1 drop OP DAILY 03/01/18 03/01/18 History [Artificial Tears Drops] Polyethylene Glycol 3350 [Miralax 17 gm PO DAILY 03/01/18 03/01/18 History 17gm Packet] clonazePAM [Klonopin 0.5mg tablet] 0.5 mg PO 0900,1300,2100 03/01/18 03/01/18 History dilTIAZem HCl [Diltiazem 120mg 120 mg PO DAILY 03/01/18 03/01/18 History 12Hr ER Cap] guaiFENesin [Robafen] 200 mg PO Q4HP PRN 03/01/18 03/01/18 History Height: 1.68 m Weight: 116.12 kg Laboratory Results:: Laboratory Results - last 24 hr 03/04/18 14:34: Vancomycin Trough 17.4 03/05/18 00:04: Urine Color Yellow, Urine Appearance Clear, Urine pH 5.5, Ur Specific [place] >= 1.030, Urine Protein Trace, Urine Glucose (UA) Negative, Urine Ketones Trace, Urine Blood Trace-l, Urine Nitrate Negative, Urine Bilirubin Negative, Urine Urobilinogen 0.2, Ur Leukocyte Esterase Negative, Urine RBC 3-5, Ur Squamous Epith Cells 5-10, Calcium Oxalate Crystal 4+ 03/05/18 05:35: Sodium 145, Potassium 3.8, Chloride 109 H, Carbon Dioxide 30, Anion Gap 9.8, BUN 30 H, Creatinine 0.97, Estimated Creat Clear 44, Estimated GFR 56 L, Est GFR ( Amer) 67, Glucose 84 D, Calcium 8.2 L, Total Bilirubin 0.4, AST 9 L, ALT 8 L, Alkaline Phosphatase 79, Total Protein 6.2 L, Albumin 2.3 L, Globulin 3.9 H, Albumin/Globulin Ratio 0.6 L Medical History: Reports:: Anxiety, Arrhythmia, Chronic Obstructive Pulmonary Disease (COPD), Depression, Hyperlipidemia, Hypertension, Lung Disease, Supraventricular Tachycardia Denies:: Atrial Fibrillation, Cancer, Diabetes Mellitus Type 1, Diabetes Mellitus Type 2, MRSA, Myocardial Infarction Assessment and Plan (1) COPD with acute exacerbation Current visit: Yes Status: Acute Category: Medical Code(s): J44.1 - Chronic obstructive pulmonary disease with (acute) exacerbation (2) Multifocal atrial tachycardia Current visit: Yes Status: Acute Category: Medical Code(s): I47.1 - Supraventricular tachycardia (3) Morbid obesity Current visit: Yes Status: Acute Category: Medical Code(s): E66.01 - Morbid (severe) obesity due to excess calories (4) Depression with anxiety Current visit: Yes Status: Acute Category: Medical Code(s): F41.8 - Other specified anxiety disorders (5) Declining functional status Current visit: Yes Status: Acute Category: Medical Code(s): R53.81 - Other malaise (6) Parkinsonism Current visit: Yes Status: Acute Category: Medical Code(s): G20 - Parkinson's disease (7) Pneumonia Current visit: Yes Status: Acute Qualifiers: Pneumonia type: due to unspecified organism Laterality: left Lung location: lower lobe of lung Qualified Code(s): J18.1 - Lobar pneumonia, unspecified organism Category: Medical Code(s): J18.9 - Pneumonia, unspecified organism - Assessment and plan all Dx Assessment and Plan for all problems:: BASED ON VANCOMYCIN TROUGH LEVEL OF 17.4 MCG/ML ON 03/04/18, RECOMMEND CONTINUING WITH VANCOMYCIN 2000 MG Q24H AT THIS TIME. PHARMACY WILL FOLLOW DAILY AND ADJUST APPROPRIATE. RAFIA VÁZQUEZ, VALERIAD
[2018-03-06 06:03] LABS: Basophils % 0.2 % (0.1-2.0); Eosinophils # 0.3 K/mm3 (0.0-0.4); Eosinophils % 3.7 % (0.1-12.0); Hematocrit 38.5 % (37.0-47.0); Hemoglobin 11.6 g/dL (12.2-16.2); Lymphocytes # 2.6 K/mm3 (0.7-4.5); Lymphocytes % 31.1 K/mm3 (10-50); Mean Corpuscular HGB Conc 30.1 g/dL (31.8-35.4); Mean Corpuscular Hemoglobin 28.6 pg (27.0-31.2); Monocytes # 0.6 K/mm3 (0.1-1.0); Monocytes % 6.6 % (1.7-9.3); Neutrophils # 4.9 K/mm3 (1.8-7.8); Neutrophils % 58.4 % (37.0-80.0); Platelet Count 255 K/mm3 (142-424); Red Blood Count 4.05 M/mm3 (4.20-5.40); Red Cell Distribution Width 14.5 % (11.5-17.5); White Blood Count 8.3 K/mm3 (4.8-10.8)
[2018-03-06 06:15] LABS: Albumin Level 2.3 gm/dL (3.4-5.0); Albumin/Globulin Ratio 0.6 (1.1-1.8); Anion Gap 9.9 mEq/L (5-15); Bilirubin,Total 0.4 mg/dL (0.2-1.0); Calcium 8.3 mg/dL (8.5-10.1); Globulin 3.7 gm/dl (1.3-3.2); Potassium 3.9 mmoL/L (3.5-5.1)
--- NOTE | 2018-03-06 07:37 | Progress Note ---
Internal Medicine - PN: Subj *Date: 03/06/18 *Time: 07:36 Interval history: Overall patient feels better, up in a chair, doing her incentive spirometry. Exam Vital signs and Labs for Last 24 Hours: Temp Pulse Resp BP Pulse Ox 98.3 F 74 20 112/65 95 03/06/18 04:00 03/06/18 06:01 03/06/18 04:00 03/06/18 04:00 03/06/18 06:01 Laboratory Results - last 24 hr 03/06/18 05:00: WBC 8.3 D, RBC 4.05 L, Hgb 11.6 L, Hct 38.5, MCV 95.0, MCH 28.6 , MCHC 30.1 L, RDW 14.5, Plt Count 255, MPV 8.0, Neut % (Auto) 58.4, Lymph % ( Auto) 31.1, [place] % (Auto) 6.6, Eos % (Auto) 3.7, Baso % (Auto) 0.2, Neut # (Auto ) 4.9, Lymph # (Auto) 2.6, [place] # (Auto) 0.6, Eos # (Auto) 0.3, Baso # (Auto) 0.0 03/06/18 05:00: Sodium 144, Potassium 3.9, Chloride 108 H, Carbon Dioxide 30, Anion Gap 9.9, BUN 26 H, Creatinine 0.96, Estimated Creat Clear 44, Estimated GFR 56 L, Est GFR ( Amer) 68, Glucose 88, Calcium 8.3 L, Total Bilirubin 0.4, AST 7 L, ALT 10 L, Alkaline Phosphatase 80, Total Protein 6.0 L, Albumin 2.3 L, Globulin 3.7 H, Albumin/Globulin Ratio 0.6 L I & O for Last 24 hours: Intake & Output 03/03/18 03/04/18 03/05/18 03/06/18 11:59 11:59 11:59 11:59 Intake Total 870 / 870 720 / 720 420 / 420 860 / 860 Output Total 900 / 900 2 / 2 1000 / 1000 Balance -30 / -30 720 / 720 418 / 418 -140 / -140 Weight 256 lb 0.012 oz 256 lb 0.012 oz Narrative: Patient is alert, pleasant. Expiratory rhonchi, mostly volitional. Heart rate irregular but much better rate control today. Lots of expiratory rhonchi but good air movement bilaterally. Assessment and Plan (1) COPD with acute exacerbation Current visit: Yes Status: Acute Category: Medical Code(s): J44.1 - Chronic obstructive pulmonary disease with (acute) exacerbation (2) Multifocal atrial tachycardia Current visit: Yes Status: Acute Category: Medical Code(s): I47.1 - Supraventricular tachycardia (3) Morbid obesity Current visit: Yes Status: Acute Category: Medical Code(s): E66.01 - Morbid (severe) obesity due to excess calories (4) Depression with anxiety Current visit: Yes Status: Acute Category: Medical Code(s): F41.8 - Other specified anxiety disorders (5) Declining functional status Current visit: Yes Status: Acute Category: Medical Code(s): R53.81 - Other malaise (6) Parkinsonism Current visit: Yes Status: Acute Category: Medical Code(s): G20 - Parkinson's disease (7) Pneumonia Current visit: Yes Status: Acute Qualifiers: Pneumonia type: due to unspecified organism Laterality: left Lung location: lower lobe of lung Qualified Code(s): J18.1 - Lobar pneumonia, unspecified organism Category: Medical Code(s): J18.9 - Pneumonia, unspecified organism - Assessment and plan all Dx Assessment and Plan for all problems:: Overall improving. Heart rate control is good. Check echocardiogram today. If acceptable transfer back to residential this afternoon.
[2018-03-06 11:55] VITALS: BP 108/57
--- NOTE | 2018-03-06 14:09 | Discharge Summary ---
General - General Admission date:: 03/01/18 Discharge date: 03/06/18 HPI HPI: 77-year-old white female with long history of COPD/asthma, who has been a senior care resident over the past 14 months because of deconditioning, chronic shortness of air, who is actually improved her pulmonary function at the senior care and has been able to come off most of her oxygen therapy. Over the past couple weeks she has had increasing problems with shortness of air , was noticed to have lots of yellow sputum production today, and was sent to the emergency department where she was found to be hypoxic, slightly febrile and have crackles in her left lung field. Admitted to hospital for antibiotic therapy for COPD exacerbation with healthcare acquired pneumonia. She was also noted to be tachycardic. Pattern most consistent on my EKG reading with multifocal atrial tachycardia which she has had before with these COPD exacerbations. Objective Vital signs: Temp Pulse Resp BP Pulse Ox 98.4 F 77 18 108/57 96 03/06/18 11:52 03/06/18 13:53 03/06/18 11:52 03/06/18 11:52 03/06/18 11:52 Results Labs on day of discharge: Labs from last 24 hours 03/06/18 03/06/18 05:00 05:00 WBC 8.3 D RBC 4.05 L Hgb 11.6 L Hct 38.5 MCV 95.0 MCH 28.6 MCHC 30.1 L RDW 14.5 Plt Count 255 MPV 8.0 Neut % (Auto) 58.4 Lymph % (Auto) 31.1 [place] % (Auto) 6.6 Eos % (Auto) 3.7 Baso % (Auto) 0.2 Neut # (Auto) 4.9 Lymph # (Auto) 2.6 [place] # (Auto) 0.6 Eos # (Auto) 0.3 Baso # (Auto) 0.0 Sodium 144 Potassium 3.9 Chloride 108 H Carbon Dioxide 30 Anion Gap 9.9 BUN 26 H Creatinine 0.96 Estimated Creat Clear 44 Estimated GFR 56 L Est GFR ( Amer) 68 Glucose 88 Calcium 8.3 L Total Bilirubin 0.4 AST 7 L ALT 10 L Alkaline Phosphatase 80 Total Protein 6.0 L Albumin 2.3 L Globulin 3.7 H Albumin/Globulin Ratio 0.6 L Preliminary micro results at discharge 03/01/18 11:02 Sputum Culture - Preliminary Sputum - Expectorated Sputum Normal Respiratory Luz DS: Diagnosis - Discharge Diagnosis (1) COPD with acute exacerbation Status: Resolved (2) Multifocal atrial tachycardia Status: Chronic (3) Morbid obesity Status: Chronic (4) Depression with anxiety Status: Chronic (5) Declining functional status Status: Chronic (6) Parkinsonism Status: Chronic (7) Pneumonia Status: Acute Discharge Plan - Patient Discharge Instructions ACTIVITY: Continue current activity DIET: continue same diet - Follow up Plan Follow up with: Mary Jo Patel APRN [Nurse Practitioner] - 2 weeks Disposition: [facility] Home Medications: Home Medications Medication Instructions Recorded Confirmed Type Acetaminophen [Acetaminophen Extra 1,000 mg PO Q6HP PRN 03/01/18 03/01/18 History Strength] Carbidopa/Levodopa 1 tab PO TID 03/01/18 03/01/18 History [Carbidopa/Levodopa 25/100mg Tablet] Fluoxetine HCl [Prozac] 20 mg PO BID 03/01/18 03/01/18 History Fluticasone Propionate [Flovent 1 puff IH BID 03/01/18 03/01/18 History Hfa 110mcg Inhaler] Gabapentin [Gabapentin 400mg Cap] 400 mg PO HS 03/01/18 03/01/18 History Lactulose [Lactulose 10gm/15ml 10 gm PO DAILYP PRN 03/01/18 03/01/18 History Oral Soln] Omeprazole [Omeprazole 20mg Tab] 20 mg PO 0700 03/01/18 03/01/18 History Peg 400/Hypromellose/Glycerin 1 drop OP DAILY 03/01/18 03/01/18 History [Artificial Tears Drops] Polyethylene Glycol 3350 [Miralax 17 gm PO DAILY 03/01/18 03/01/18 History 17gm Packet] clonazePAM [Klonopin 0.5mg tablet] 0.5 mg PO 0900,1300,2100 03/01/18 03/01/18 History dilTIAZem HCl [Diltiazem 120mg 120 mg PO DAILY 03/01/18 03/01/18 History 12Hr ER Cap] guaiFENesin [Robafen] 200 mg PO Q4HP PRN 03/01/18 03/01/18 History Prescriptions/Medication Reconciliation: New dilTIAZem HCl [Diltiazem 240mg 24Hr ER Cap] 240 mg PO DAILY #30 cap Rivaroxaban [Xarelto 15mg tablet] 15 mg PO BID tablet levoFLOXacin [Levaquin 500mg tab] 500 mg PO DAILY #5 tab Continue Gabapentin [Gabapentin 400mg Cap] 400 mg PO HS Fluoxetine HCl [Prozac] 20 mg PO BID Fluticasone Propionate [Flovent Hfa 110mcg Inhaler] 1 puff IH BID Polyethylene Glycol 3350 [Miralax 17gm Packet] 17 gm PO DAILY Acetaminophen [Acetaminophen Extra Strength] 1,000 mg PO Q6HP PRN PRN Reason: PAIN/FEVER Peg 400/Hypromellose/Glycerin [Artificial Tears Drops] 1 drop OP DAILY Lactulose [Lactulose 10gm/15ml Oral Soln] 10 gm PO DAILYP PRN PRN Reason: Constipation Omeprazole [Omeprazole 20mg Tab] 20 mg PO 0700 Carbidopa/Levodopa [Carbidopa/Levodopa 25/100mg Tablet] 1 tab PO TID clonazePAM [Klonopin 0.5mg tablet] 0.5 mg PO 0900,1300,2100 guaiFENesin [Robafen] 200 mg PO Q4HP PRN PRN Reason: Cough Discontinued dilTIAZem HCl [Diltiazem 120mg 12Hr ER Cap] 120 mg PO DAILY
== END 2018-03-06 14:58 ==
LOC: ER 10:46 → 2ND 10:46
PROVIDERS: ADMIT Internal Medicine Adolescent Medicine; ATTEND Internal Medicine Adolescent Medicine

== ENCOUNTER → 2018-12-19 13:12 | Outpatient (CLI) | payer MEDICARE, MEDICAID, SELFPAY ==
--- NOTE | 2018-12-19 13:15 | FL_ITS ---
FL barium swallow modified: 12/19/2018 1:15 PM CLINICAL HISTORY: Dysphagia ORDERING PHYSICIAN: Dex Stone MD PATIENT AGE: 78 years Comparison: None TECHNIQUE: Patient administered varying consistencies of barium contrast, while viewed in lateral position under real-time fluoroscopy with cine recording. FLUOROSCOPY TIME: 2 minutes and 13 seconds The study was performed in conjunction with speech pathologist. Please see that report & recommendations. FINDINGS: Patient was given varying consistencies of barium. No evidence of vestibular penetration or tracheal aspiration IMPRESSION: Unremarkable modified barium swallow Please see speech pathologist report and recommendations.
--- NOTE | 2018-12-19 14:36 | HMH.SLMBS2 ---
Speech & Language Evaluation Speech/Language Mod Barium Swallow Start: 12/19/18 14:03 Freq: once Status: Complete Protocol: Document 12/19/18 14:28 JAMA (Rec: 12/19/18 14:35 JAMA [id number]) MBS Recommendations Diet Dietary Recommendations Regular Thin Liquids Treatment/Strategies Strategy/Precaution Recommend Sitting Upright (90 deg) No Straw Small Bites and Sips Alternate Liquids/Solids Mod Barium Swallow Impressions Summary and Impressions Oral Phase Impression No Impairment (WFL) Oral Phase Summary Patient exhibits no impairments with oral phase. Pharyngeal Phase Impression Minimal Impairment Pharyngeal Phase Summary Patient experienced flash penetration into the laryngeal vestibule with thin liquids via straw. It is recommended that patient not have straws. Speech/Language MBS Assessment/Goals/Plan Assessment Date of Evaluation: 12/19/18 Evaluation Type Initial Certification Assessment/Problems Rule out silent aspiraiton Does Patient Qualify for Service No Qualify/Failure Comment Patient has a diet that is appropriate and safe. Recommendations PHYSICIAN CERTIFICATION: The specified therapy services are required, authorized, and reviewed every 30 days. Diet Recommendations Normal Liquid Type Recommendations Normal/Thin SL Swallow Guidelines Alt bite w/sip thru meal Dysphagia Swallow Precautions/Strategies Sitting Upright (90 deg) No Straw Alternate Liquids/Solids Plan Pt/Guardian verbally ack understanding Yes of dx/prognosis/goals G -code Required Yes G-CODES ST Current Status [id number] ST Current Status Modifier CI-At least 1% but less than 20% impaired, limited or restricted ST Goal Status [id number] ST Goal Status Modifier CI-At least 1% but less than 20% impaired, limited or restricted Mod Barium Swallow Setup Exam Setup Radiologist José Rao Level of Consciousness Awake Alert Appropriate Position (degrees) 90 Mod Barium Swallow-Lat View Textures Lateral View Food Presentation Thin Liquid via Cup Thin Liquid via Straw Ground Food- Regular Barium Tablet
== END ==
PROVIDERS: PCP Internal Medicine Adolescent Medicine; Referring Provider Internal Medicine Adolescent Medicine; Visit Provider Internal Medicine Adolescent Medicine
DX: R13.10 Dysphagia, unspecified (principal)
CPT/HCPCS: 70371; 92611

== ENCOUNTER → 2020-03-17 20:26 | Outpatient (CLI) | payer MEDICARE, MEDICAID, SELFPAY ==
[2020-03-17 20:39] LABS: Microscopic, Urine URINE MICROSCOPIC (MICROSCOPIC)
[2020-03-17 20:48] LABS: Basophils # 0.1 K/mm3 (0-0.2); Basophils % 0.3 % (0.1-2.0); Eosinophils # 0.2 K/mm3 (0.0-0.4); Eosinophils % 0.5 % (0.1-12.0); Hematocrit 39.2 % (37.0-47.0); Hemoglobin 12.8 g/dL (12.2-16.2); Lymphocytes # 2.7 K/mm3 (0.7-4.5); Lymphocytes % 8.8 % (10-50); Mean Corpuscular HGB Conc 32.7 g/dL (31.8-35.4); Mean Corpuscular Hemoglobin 31.7 pg (27.0-31.2); Mean Corpuscular Volume 96.9 fl (81-99); Mean Platelet Volume 8.4 fl (7.4-10.4); Monocytes # 1.1 K/mm3 (0.1-1.0); Monocytes % 3.5 % (1.7-9.3); Neutrophils # 26.5 K/mm3 (1.8-7.8); Neutrophils % 86.9 % (37.0-80.0); Platelet Count 271 K/mm3 (142-424); Red Blood Count 4.04 M/mm3 (4.20-5.40); Red Cell Distribution Width 14.6 % (11.5-17.5); White Blood Count 30.5 K/mm3 (4.8-10.8)
[2020-03-17 20:51] LABS: Chloride 100 mmol/L (98-107); MANUAL DIFFERENTIAL MANUAL DIFFERENTIAL (MANUAL DIFF); Potassium 3.9 mmoL/L (3.5-5.1); Sodium 134 mmol/L (136-145)
[2020-03-17 20:54] LABS: Anion Gap 9.9 mEq/L (5-15); Blood Urea Nitrogen 21 mg/dl (7-17); Calcium 8.4 mg/dl (8.4-10.2); Carbon Dioxide 28 mmol/L (22.0-30.0); Estimated Glomerular Filt Rate 40 ml/min (>60); GFR (African American) 48 ML/MIN (>60); Glucose 117 mg/dl (74-100)
[2020-03-17 21:07] LABS: Appearance,Urine CLEAR (Clear); Bilirubin,Urine Negative (Negative); Blood, Urine Negative (Negative); Color,Urine DK YELLOW (Yellow); Glucose,Urine (UA) Negative (Negative); Ketones,Urine Negative (Negative); Leukocyte Esterase,Urine Negative (Negative); Nitrate,Urine Negative (Negative); PH,Urine 7.5 (5.0-8.5); Protein,Urine Negative (Negative); Specific Gravity, Urine 1.015 (1.005-1.030); Urobilinogen,Urine 0.2 EU/dl (0.2)
[2020-03-17 21:16] LABS: Bacteria,Urine Trace /lpf; WBC,Urine Occasional #/hpf (0-3)
[2020-03-17 21:44] LABS: Lymphocytes % 6 % (10-50); Monocytes % 3 % (2-9); Neutrophils % 91 % (42-76); Total Cells Counted 100
[2020-03-17 21:45] LABS: Platelet Estimate Normal; Stomatocytes 1+
[2020-03-19 21:08] LABS: Peripheral Smear Review Scanned Result
== END ==
PROVIDERS: PCP Internal Medicine Adolescent Medicine; Visit Provider Nurse Practitioner Family
DX: D72.829 Elevated white blood cell count, unspecified (principal)
CPT/HCPCS: 80048; 81001; 85007; 85025

== ENCOUNTER → 2020-05-31 12:11 | Outpatient (CLI) | payer MEDICARE, MEDICAID, SELFPAY ==
[2020-05-31 12:54] LABS: Basophils # 0.1 K/mm3 (0-0.2); Basophils % 0.3 % (0.1-2.0); Eosinophils # 0.2 K/mm3 (0.0-0.4); Eosinophils % 1.3 % (0.1-12.0); Hemoglobin 14.3 g/dL (12.2-16.2); Lymphocytes # 1.7 K/mm3 (0.7-4.5); Lymphocytes % 10.4 % (10-50); Mean Corpuscular HGB Conc 34.2 g/dL (31.8-35.4); Mean Corpuscular Hemoglobin 31.6 pg (27.0-31.2); Mean Corpuscular Volume 92.5 fl (81-99); Mean Platelet Volume 9.4 fl (7.4-10.4); Monocytes # 0.6 K/mm3 (0.1-1.0); Monocytes % 3.6 % (1.7-9.3); Neutrophils # 13.8 K/mm3 (1.8-7.8); Neutrophils % 84.4 % (37.0-80.0); Platelet Count 241 K/mm3 (142-424); Red Blood Count 4.54 M/mm3 (4.20-5.40); Red Cell Distribution Width 14.4 % (11.5-17.5); White Blood Count 16.4 K/mm3 (4.8-10.8)
[2020-05-31 12:57] LABS: MANUAL DIFFERENTIAL MANUAL DIFFERENTIAL (MANUAL DIFF)
[2020-05-31 13:47] LABS: Anion Gap 13.3 mEq/L (5-15); Blood Urea Nitrogen 19 mg/dl (7-17); Calcium 8.8 mg/dl (8.4-10.2); Carbon Dioxide 31 mmol/L (22.0-30.0); Chloride 100 mmol/L (98-107); Estimated Glomerular Filt Rate 60 ml/min (>60); GFR (African American) 73 ML/MIN (>60); Glucose 99 mg/dl (74-100); Potassium 4.3 mmoL/L (3.5-5.1); Sodium 140 mmol/L (136-145)
[2020-05-31 14:00] LABS: Lymphocytes % 16 % (10-50); Monocytes % 2 % (2-9); Neutrophils % 82 % (42-76); Platelet Estimate Normal; RBC Morphology Normal; Total Cells Counted 100
[2020-05-31 18:59] LABS: Microscopic, Urine URINE MICROSCOPIC (MICROSCOPIC)
[2020-05-31 19:05] LABS: Appearance,Urine CLEAR (Clear); Bilirubin,Urine Negative (Negative); Blood, Urine Negative (Negative); Color,Urine YELLOW (Yellow); Glucose,Urine (UA) Negative (Negative); Ketones,Urine Negative (Negative); Leukocyte Esterase,Urine Negative (Negative); Nitrate,Urine Negative (Negative); Protein,Urine Negative (Negative); Specific Gravity, Urine 1.015 (1.005-1.030); Urobilinogen,Urine 0.2 EU/dl (0.2)
== END ==
PROVIDERS: PCP Nurse Practitioner Family; Visit Provider Nurse Practitioner Family
DX: G20 Parkinson's disease (principal)
CPT/HCPCS: 80048; 81001; 85007; 85025

== ENCOUNTER → 2020-07-31 10:23 | Outpatient (CLI) | payer MEDICARE, MEDICAID, SELFPAY ==
[2020-07-31 10:55] LABS: Basophils # 0.1 K/mm3 (0-0.2); Basophils % 0.9 % (0.1-2.0); Eosinophils # 0.4 K/mm3 (0.0-0.4); Eosinophils % 4.2 % (0.1-12.0); Hematocrit 44.1 % (37.0-47.0); Hemoglobin 14.8 g/dL (12.2-16.2); Lymphocytes # 1.9 K/mm3 (0.7-4.5); Mean Corpuscular HGB Conc 33.4 g/dL (31.8-35.4); Mean Corpuscular Hemoglobin 30.8 pg (27.0-31.2); Mean Corpuscular Volume 92.2 fl (81-99); Mean Platelet Volume 8.8 fl (7.4-10.4); Monocytes # 0.5 K/mm3 (0.1-1.0); Monocytes % 5.5 % (1.7-9.3); Neutrophils # 6.8 K/mm3 (1.8-7.8); Neutrophils % 69.5 % (37.0-80.0); Platelet Count 280 K/mm3 (142-424); Red Blood Count 4.79 M/mm3 (4.20-5.40); Red Cell Distribution Width 14.2 % (11.5-17.5); White Blood Count 9.7 K/mm3 (4.8-10.8)
== END ==
PROVIDERS: Visit Provider Nurse Practitioner Family
DX: R09.3 Abnormal sputum (principal)
CPT/HCPCS: 85025

== ENCOUNTER → 2020-08-09 12:21 | Outpatient (CLI) | payer MEDICARE, MEDICAID, SELFPAY ==
[2020-08-09 13:04] LABS: Chloride 100 mmol/L (98-107); Potassium 3.5 mmoL/L (3.5-5.1); Sodium 142 mmol/L (136-145)
[2020-08-09 13:07] LABS: Anion Gap 12.5 mEq/L (5-15); Blood Urea Nitrogen 17 mg/dl (7-17); Calcium 9.2 mg/dl (8.4-10.2); Carbon Dioxide 33 mmol/L (22.0-30.0); Estimated Glomerular Filt Rate 60 ml/min (>60); GFR (African American) 73 ML/MIN (>60); Glucose 99 mg/dl (74-100)
== END ==
LOC: LAB 12:21 → LAB.DROPOF 08-10 11:35
PROVIDERS: Visit Provider Nurse Practitioner Family
DX: G20 Parkinson's disease (principal)
CPT/HCPCS: 80048

== ENCOUNTER 2020-08-21 12:11 | Emergency (ER) | payer MEDICARE, MEDICAID, SELFPAY ==
[2020-08-21 12:11] VITALS: BP 122/45; PULSE 80; RESP 16; TEMP 37.2; O2SAT 93; BMI 40.3
[2020-08-21 12:12] VITALS: BMI 40.3
--- NOTE | 2020-08-21 12:13 | CT_ITS ---
PROCEDURE: CT CERVICAL SPINE WO CON CLINICAL INDICATION: fall Neck injury with pain, contusion/abrasion or hematoma, cervical sprain/strain the COMPARISON: CT CSWO CT CERVICAL SPINE W/O CONT from 05/05/2017 TECHNIQUE: Axial images obtained with sagittal and coronal reformats. All CT scans at the facility use one or more dose reduction, viz: automated exposure control, ma/kV adjustment per patient size (including targeted exams where dose is matched to indication, i.e. head), or iterative reconstruction technique. Axial spiral CT scanning performed of the cervical spine beginning at the base of the skull and continuing to the upper T-spine. 3-D multiplanar reconstruction with 3-D manipulation of volumetric data set in image rendering was completed by the radiologist and/or technologist with the supervision of the radiologist on independent workstation. FINDINGS: There is normal alignment. No acute fracture or dislocation is evident. There is multilevel cervical spondylosis. Degenerative changes are present at atlantoaxial joint. C2-C3: Mild degenerative disc disease. C3-C4: Mild degenerative disc disease. C4-C5: Degenerate disc disease with anterior osteophytes. C5-C6 degenerative disc disease with prominent anterior osteophytes and bilateral uncovertebral hypertrophy with left lateral recess and foraminal narrowing. C6-C7: Degenerate disc disease with endplate osteophytes with narrowing of the canal and with bilateral foraminal narrowing and bilateral lateral recess narrowing. Prominent anterior osteophytes. C7-T1: Unremarkable. Fibrotic changes are present in the lung apices. IMPRESSION: 1. No acute fracture. 2. Multilevel cervical spondylosis as detailed above. Dictated by: José Rao MD 08/21/2020 13:28 José Rao MD in [place] 08/21/2020 13:28
--- NOTE | 2020-08-21 12:13 | XR_ITS ---
PROCEDURE: XR CHEST AP CLINICAL HISTORY: fall Posttraumatic pain COMPARISON: CR CXR CHEST(2 VIEWS-NOT PORTABLE) from 12/28/2016 CR CXR1VP XR chest portable from 03/01/[address] chest wo con from 03/01/2018 CR CXR2V XR chest 2V from 03/01/2018 FINDINGS: Mild cardiomegaly without failure. There is a small left pleural effusion. Lungs are clear of acute infiltrate. Surgical clips are present over the right paratracheal region Degenerative changes in the shoulders. IMPRESSION: Cardiomegaly with small left effusion Dictated by: José Rao MD 08/21/2020 13:32 José Rao MD in [facility] 08/21/2020 13:32
--- NOTE | 2020-08-21 12:13 | CT_ITS ---
PROCEDURE: CT HEAD/BRAIN WO CON CLINICAL INDICATION: fall Head injury with headache/pain, contusion, abrasion or hematoma COMPARISON: CT HEADWO CT head/brain wo con from 03/03/2018 TECHNIQUE: Axial images obtained. All CT scans at the facility use one or more dose reduction, viz: automated exposure control, ma/kV adjustment per patient size (including targeted exams where dose is matched to indication, i.e. head), or iterative reconstruction technique. FINDINGS: No midline shift, mass effect, intracranial hemorrhage, hydrocephalus, or extra-axial fluid collection is evident. There is generalized atrophy with hypoattenuation of the periventricular white matter consistent with microangiopathic changes.. Encephalomalacia changes are present in the left occipital lobe. There is focal soft tissue swelling of the scalp in the left parietal region and in the right frontal area. The calvarium has an unremarkable appearance. No mastoid effusion. No sinus air-fluid level. IMPRESSION: 1. No acute intracranial findings. 2. Left parietal and right frontal scalp hematoma. Dictated by: José Rao MD 08/21/2020 13:25 José Rao MD in [facility] 08/21/2020 13:25
--- NOTE | 2020-08-21 12:13 | XR_ITS ---
PROCEDURE: XR PELVIS 1-2V CLINICAL INDICATION: fall Pain COMPARISON: CR [id number] HIP RT 2-3V W/PELVIS IF PERFOR from 02/19/2017 TECHNIQUE: XR Pelvis AP View FINDINGS: Exam is limited technically. No grossly displaced fractures are evident. Nondisplaced fractures not be visualized with this technique. If pain persists, suggest repeating exam at no additional charge to the patient. Mild osteoarthritic change of the hips and degenerative changes lumbar spine. IMPRESSION: Limited exam, osteoarthritic change, no grossly displaced fracture is evident, see above for detail Dictated by: José Rao MD 08/22/2020 07:59 José Rao MD in [place] 08/22/2020 07:59
--- NOTE | 2020-08-21 12:13 | ECG_ITS ---
APPROVED REPORT Exam: Resting ECG HR:84 bpm ECG Measurements Heart Rate 84 AXES QRSd 94 QRS -21 QT 684 T 50 QTc 808 Conclusion Accelerated Junctional rhythm with frequent and consecutive premature ventricular complexes and fusion complexes Low voltage QRS Incomplete right bundle branch block Possible Inferior infarct, age undetermined Prolonged QT Abnormal ECG Electronically signed by : Dex Stone, 08/22/2020 19:20:58
--- NOTE | 2020-08-21 12:15 | XR_ITS ---
PROCEDURE: XR SHOULDER RT MIN 2V CLINICAL INDICATION: fall Pain injury COMPARISON: CR SHOU3R [id number] VIEWS from 08/13/2015 CR SHOU3R [id number] VIEWS from 05/05/2017 FINDINGS: No fracture or dislocation. No lytic or blastic change. There is normal mineralization. There are severe osteoarthritic changes the acromioclavicular and glenohumeral joint with high-riding humeral head with severe subacromial stenosis. There is limitation in positioning without a true AP view of the shoulder similar to multiple previous exams. There is some periarticular calcification along right shoulder posteriorly Other findings:None. IMPRESSION: No acute fracture. Severe osteoarthritis with subacromial stenosis consistent with rotator cuff tear Dictated by: José Rao MD 08/21/2020 13:31 José Rao MD in [place] 08/21/2020 13:31
--- NOTE | 2020-08-21 12:16 | [facility].EDGENADL ---
ED Disposition Clinical Impression: Hypokalemia Traumatic hematoma of forehead Qualifiers: Encounter type: initial encounter Qualified Code(s): S00.83XA - Contusion of other part of head, initial encounter Fall Qualifiers: Encounter type: initial encounter Qualified Code(s): W19.XXXA - Unspecified fall, initial encounter Contusion of right shoulder Qualifiers: Encounter type: initial encounter Qualified Code(s): S40.011A - Contusion of right shoulder, initial encounter Disposition: Xfer SNF Condition on Discharge: Fair Instructions: How to Prevent Falls, DI for Closed Head Injury Additional Instructions: Ice to forehead and shoulder for swelling. Tylenol as needed for pain. Additional instructions for HEAD INJURY: See your physician as soon as possible for further evaluation. Return immediately if severe headache, vomiting, problems with vision or speech, numbness or weakness of the extremities, or severe neck pain. Referrals: Loren Forrester APRN [Primary Care Provider] - - Critical Care Critical Care Time: No Attestation: On , the high probability of a clinically significant, sudden or life threatening deterioration of the following system(s) required my full and direct attention, intervention and personal management. The time I documented below is in addition to time spent performing reported procedures but includes the following listed in this critical care notation. Medical Decision Making - Alex Inquiry Pt receiving controlled substance: No Vital Signs: 08/21/20 12:11 08/21/20 13:20 08/21/20 13:59 Temperature 98.9 F Temperature Source Oral Pulse Rate [Left Radial] 80 74 79 Respiratory Rate 16 Blood Pressure [Right Arm] 122/45 L 127/62 131/84 Blood Pressure Mean [Right Arm] 70 83 99 Blood Pressure Source [Right Arm] Automatic Cuff Automatic Cuff Automatic Cuff Blood Pressure Position [Right Arm] Sitting Sitting Sitting 02 Sat by Pulse Oximetry 93 L 96 95 Oxygen Delivery Method Room Air Room Air Room Air - Lab Data Lab Results 08/21/20 13:35: WBC 8.1, RBC 4.78, Hgb 14.6, Hct 44.0, MCV 92.2, MCH 30.7, MCHC 33.3, RDW 14.6, Plt Count 180, MPV 10.0, Neut % (Auto) 82.2 H, Lymph % (Auto) 7.5 L, Long % (Auto) 4.8, Eos % (Auto) 5.2, Baso % (Auto) 0.4, Neut # (Auto) 6.6, Lymph # (Auto) 0.6 L, Long # (Auto) 0.4, Eos # (Auto) 0.4, Baso # (Auto) 0.0 08/21/20 13:35: Sodium 141, Potassium 3.2 L, Chloride 100, Carbon Dioxide 34 H, Anion Gap 10.2, BUN 23 H, Creatinine 1.10 H, Estimated Creat Clear 74, Estimated GFR 48 L, Est GFR ( Amer) 58 L, Glucose 96, Calcium 8.8, Total Bilirubin 1.3, AST 20, ALT 5 L, Alkaline Phosphatase 104, Total Protein 7.3, Albumin 3.7, Globulin 3.6 H, Albumin/Globulin Ratio 1.0 L Result diagrams: 08/21/20 13:35 08/21/20 13:35 Orders (Tests/Meds): ED MEDICATIONS Discontinued Medications Generic Name Dose Route Start Last Admin Trade Name Freq PRN Reason Stop Dose Admin Potassium Chloride 20 meq 08/21/20 14:20 Potassium Chloride 20meq Tab PO 08/21/20 14:21 ONCE ONE ORDERS Category Date Time Status XR pelvis 1-2V Stat Exams 08/21/20 12:13 Taken Covid-19 IgG/IgM ([facility]) Stat Lab 08/21/20 13:35 Received - Radiology Data #1 Image(s): Chest, Shoulder, Pelvis Image Reviewed: Yes I reviewed the patient's radiology image, Yes I have reviewed radiologist's interpretation PROCEDURE: XR SHOULDER RT MIN 2V CLINICAL INDICATION: fall Pain injury COMPARISON: CR SHOU3R [id number] VIEWS from 08/13/2015 CR SHOU3R [id number] VIEWS from 05/05/2017 FINDINGS: No fracture or dislocation. No lytic or blastic change. There is normal mineralization. There are severe osteoarthritic changes the acromioclavicular and glenohumeral joint with high-riding humeral head with severe subacromial stenosis. There is limitation in positioning without a true AP view of the shoulder similar to multiple previou
--- NOTE | 2020-08-21 12:34 | PC.NURSE ---
Pt to radiology
--- NOTE | 2020-08-21 13:18 | PC.NURSE ---
Pt had large bowel movement. Pt changed at this time. Pt does have two stage two pressure sores on her coccyx area. Nurse aware.
[2020-08-21 13:20] VITALS: BP 127/62; PULSE 74; O2SAT 96
--- NOTE | 2020-08-21 13:35 | PC.NURSE ---
Mepilex pressure dressing placed on pt coccyx over stage 2 noted on area
--- NOTE | 2020-08-21 13:38 | PC.NURSE ---
Rad at bedside
--- NOTE | 2020-08-21 13:51 | PC.NURSE ---
Pt given water at this time.
[2020-08-21 13:54] LABS: Chloride 100 mmol/L (98-107)
[2020-08-21 13:55] LABS: Potassium 3.2 mmoL/L (3.5-5.1); Sodium 141 mmol/L (136-145)
[2020-08-21 13:57] LABS: Alanine Aminotransferase 5 U/L (12-78); Alkaline Phosphatase 104 U/L (38-126); Aspartate Amino Transferase 20 U/L (14-36); Bilirubin,Total 1.3 mg/dl (0.2-1.3); Blood Urea Nitrogen 23 mg/dl (7-17); Creatinine Clearance Estimated 74 mL/min (50-200); Estimated Glomerular Filt Rate 48 ml/min (>60); GFR (African American) 58 ML/MIN (>60)
[2020-08-21 13:58] LABS: Albumin Level 3.7 g/dl (3.5-5.0); Anion Gap 10.2 mEq/L (5-15); Calcium 8.8 mg/dl (8.4-10.2); Carbon Dioxide 34 mmol/L (22.0-30.0); Globulin 3.6 g/dL (1.3-3.2); Glucose 96 mg/dl (74-100); Total Protein,Serum 7.3 g/dl (6.3-8.2)
[2020-08-21 13:59] VITALS: BP 131/84; PULSE 79; O2SAT 95
[2020-08-21 14:11] LABS: Basophils % 0.4 % (0.1-2.0); Eosinophils # 0.4 K/mm3 (0.0-0.4); Eosinophils % 5.2 % (0.1-12.0); Hemoglobin 14.6 g/dL (12.2-16.2); Lymphocytes # 0.6 K/mm3 (0.7-4.5); Lymphocytes % 7.5 % (10-50); Mean Corpuscular HGB Conc 33.3 g/dL (31.8-35.4); Mean Corpuscular Hemoglobin 30.7 pg (27.0-31.2); Mean Corpuscular Volume 92.2 fl (81-99); Monocytes # 0.4 K/mm3 (0.1-1.0); Monocytes % 4.8 % (1.7-9.3); Neutrophils # 6.6 K/mm3 (1.8-7.8); Neutrophils % 82.2 % (37.0-80.0); Platelet Count 180 K/mm3 (142-424); Red Blood Count 4.78 M/mm3 (4.20-5.40); Red Cell Distribution Width 14.6 % (11.5-17.5); White Blood Count 8.1 K/mm3 (4.8-10.8)
[2020-08-21 14:21] LABS: Coronavirus 19 IgG Antibody Negative (Negative); Coronavirus 19 IgM Antibody Negative (Negative)
[2020-08-21 14:26] VITALS: BP 118/55; PULSE 83; O2SAT 98
[2020-08-21 15:22] VITALS: BP 126/58; PULSE 93; RESP 16; TEMP 37.2; O2SAT 96
== END 2020-08-21 15:24 ==
PROVIDERS: Emergency Provider Emergency Medicine; PCP Nurse Practitioner Family
DX: S00.83XA Contusion of other part of head, initial encounter (principal); S40.011A Contusion of right shoulder, initial encounter; E87.6 Hypokalemia; W01.0XXA Fall on same level from slipping, tripping and stumbling without subsequent striking against object, initial encounter; Y92.129 Unspecified place in nursing home as the place of occurrence of the external cause; J44.9 Chronic obstructive pulmonary disease, unspecified; E78.5 Hyperlipidemia, unspecified; I10 Essential (primary) hypertension; F41.8 Other specified anxiety disorders; I47.1 Supraventricular tachycardia; Z79.899 Other long term (current) drug therapy; Z88.0 Allergy status to penicillin; Z88.2 Allergy status to sulfonamides; Z88.5 Allergy status to narcotic agent
CPT/HCPCS: 70450; 71045; 72125; 72170; 73030; 80053; 85025; 86328; 93005; 99284

== ENCOUNTER → 2020-09-13 11:41 | Outpatient (CLI) | payer MEDICARE, MEDICAID, SELFPAY ==
[2020-09-13 12:00] LABS: Basophils % 0.3 % (0.1-2.0); Eosinophils # 0.1 K/mm3 (0.0-0.4); Eosinophils % 1.2 % (0.1-12.0); Hematocrit 42.7 % (37.0-47.0); Hemoglobin 14.4 g/dL (12.2-16.2); Lymphocytes # 0.9 K/mm3 (0.7-4.5); Lymphocytes % 9.8 % (10-50); Mean Corpuscular HGB Conc 33.6 g/dL (31.8-35.4); Mean Corpuscular Hemoglobin 30.8 pg (27.0-31.2); Mean Corpuscular Volume 91.7 fl (81-99); Mean Platelet Volume 12.8 fl (7.4-10.4); Monocytes # 0.4 K/mm3 (0.1-1.0); Monocytes % 4.9 % (1.7-9.3); Neutrophils # 7.6 K/mm3 (1.8-7.8); Neutrophils % 83.9 % (37.0-80.0); Platelet Count 171 K/mm3 (142-424); Red Blood Count 4.66 M/mm3 (4.20-5.40); Red Cell Distribution Width 15.1 % (11.5-17.5); White Blood Count 9.1 K/mm3 (4.8-10.8)
[2020-09-13 12:09] LABS: Anion Gap 13.2 mEq/L (5-15); Blood Urea Nitrogen 21 mg/dl (7-17); Calcium 8.6 mg/dl (8.4-10.2); Carbon Dioxide 32 mmol/L (22.0-30.0); Chloride 98 mmol/L (98-107); Estimated Glomerular Filt Rate 60 ml/min (>60); GFR (African American) 73 ML/MIN (>60); Glucose 108 mg/dl (74-100); Potassium 3.2 mmoL/L (3.5-5.1); Sodium 140 mmol/L (136-145)
== END ==
PROVIDERS: Visit Provider Nurse Practitioner Family
DX: E87.6 Hypokalemia (principal)
CPT/HCPCS: 80048; 85025